=== PATIENT | male | born 1960 | race Caucasian/White ===

== ENCOUNTER 2021-05-01 23:37 | Inpatient (IN) | payer MEDICARE, SELFPAY ==
--- NOTE | ~2021-05-01 | US_ITS ---
EXAMINATION: US venous doppler [facility] DATE: 05/02/2021 15:21 INDICATION: Deep vein thrombosis. TECHNIQUE: Grayscale ultrasound images without and with compression and Doppler ultrasound images of the bilateral lower extremity veins were obtained. COMPARISON: chest CT 05/02/2021 FINDINGS: There is thrombus in right common femoral vein, profunda (deep) femoral vein, femoral vein, popliteal vein, peroneal veins, posterior tibial veins, and greater saphenous vein. The visualized portions of left common femoral vein, profunda femoral vein, femoral vein, popliteal v ein, peroneal veins, posterior tibial veins, and greater saphenous vein outflow are patent. IMPRESSION: 1. Extensive right-sided acute deep vein thrombosis. Reviewed, dictated and finalized at location A. NESS LAW PROFESSOR
--- NOTE | ~2021-05-01 | XR_ITS ---
EXAMINATION: XR chest 1V portable EXAM DATE: 05/02/2021 00:45 INDICATION: dyspnea, HX Lung Cancer, Copd . TECHNIQUE: Portable AP frontal chest x-ray was obtained. There is no prior study for comparison. FINDINGS: Extensive right-sided, moderate amount of left-sided airspace disease likely has acute comp onent of edema and/or pneumonia. Given portacatheter in appearance to right lung, may well be chronic component. There is a right-sided portacatheter. Cardiomediastinal silhouette is normal. Probable sm all right pleural effusion. No pneumothorax. There are bony degenerative changes. IMPRESSION: Extensive right-sided, moderate left-sided airspace disease, acute or acute on chronic. Reviewed, dictated and finalized at location A. ION SUPERVISOR
--- NOTE | ~2021-05-01 | CT_ITS ---
EXAMINATION: CTA chest PE abdomen pel EXAM DATE: 05/02/2021 02:12 INDICATION: Shortness of breath, stage IV lung cancer. TECHNIQUE: Spiral CTA of the chest (pulmonary arteries) was performed with 100 cc Omnipaque 350 intr avenous contrast injection. Images were acquired during the pulmonary arterial phase. Coronal maxi mum intensity projection 3D-reconstructions were created by the technologist on dedicated workstation . Axial, coronal and sagittal reformatted images were reviewed. Spiral CT of the abdomen and pelvis was then performed with the same intravenous contrast injection. Axial, coronal and sagittal reform atted images were reviewed. The dose-length product (DLP) for this examination was 1407.84 mGy-cm. The exposure was tailored according to patient size (auto mA exposure control), and iterative recons truction (ASIR) was used as additional dose reduction technique. There is no prior study for compari son. FINDINGS: CHEST: Positive for left lung interlobar pulmonary embolism extending into several segmental bronchi . No thoracic aortic dissection. There is a right-sided chest tube in position with multiloculated small to moderate right pleural effusion. No pneumothorax. Heart is within normal size limits. There is endocardial fatty deposition at the ventricular apex, an old ventricular infarction. There is debra re emphysema. Moderate amount of left-sided groundglass density airspace disease suspicious for acute pneumonia or edema. There is moderate amount of heterogeneous right perihilar airspace disease with soft tissue extension along the bronchus intermedius, causing narrowing of this structure. There are regions of occluded segmental bronchi. Appearance is consistent with infiltrative hilar malignancy. T here is a loculated pleural effusion medial to the right middle lobe measuring 4 x 9 cm in greatest a xial dimensions. Small left pleural effusion which may have loculations as well. Trace pericardial ef fusion. Small to moderate-sized gastroesophageal hiatal hernia. Mediastinal lymphadenopathy with an a ortopulmonary window lymph node measuring 1.6 x 1.3 cm. There is T5 pathological burst fracture with complete loss of this vertebral body height anteriorly a nd centrally, and about 50% loss of its posterior cortex, with about 4 mm retropulsion. Remaining por tion of vertebral body does appear sclerotic indicating probably from underlying metastatic disease. There are other scattered next osteoblastic osteolytic lesions identified, largest probably left 7th rib. Also sclerosis of the T4 and T6 vertebral bodies. ABDOMEN PELVIS: There is central low density within the right common femoral vein most likely deep ve nous thrombosis. The liver, spleen, adrenal glands and pancreas are unremarkable. Gallbladder is un remarkable. No biliary obstruction. Portal and splenic veins are patent. Kidneys enhance symmetric ally. There is no hydronephrosis. The prostate is unremarkable. The bladder is unremarkable. The re is no retroperitoneal or pelvic lymphadenopathy. There is mild to moderate scattered arterioscle rotic disease. Small bilateral inguinal fat-containing hernias. There is moderate sigmoid colonic diverticulosis. There is no adjacent inflammatory change to sugges t diverticulitis. There is a small duodenal diverticulum. There is moderate amount of colonic stool. No free intraperitoneal gas. Right iliac crest osteoblastic disease. IMPRESSION: 1. Positive for left lung pulmonary embolism, and also probably right common femoral DVT. Reportedl y embolism finding was called to emergency room Colt Douglas MD as per documentation with preliminary report. 2. Infiltrative right hilar airspace disease consistent with malignancy. Mediastinal lymphadenopathy . 3. Loculated bilateral pleural effusions, right-sided chest tube in position. 4. Scattered osteobla
[2021-05-01 23:41] VITALS: BP 115/83; PULSE 132; RESP 18; TEMP 36.1; O2SAT 95
[2021-05-01 23:48] VITALS: O2SAT 96
[2021-05-01 23:49] VITALS: PULSE 132
[2021-05-01 23:50] VITALS: PULSE 122; RESP 23; O2SAT 93
[2021-05-02] VITALS (68 sets, daily range): BP systolic 101–142; BP diastolic 50–114; PULSE 92–130; RESP 13–38; TEMP 36.2–36.7; O2SAT 84–100; BMI 25.1
--- NOTE | 2021-05-02 | ECHO_ITS ---
Patient Info Name: El Pino Age: 60 years : 1960 Gender: Male Ht: 67 in Wt: 175 lbs BSA: 1.95 m2 HR: 104 bpm BP: 107 / 69 mmHg Technical Quality: Poor Exam Date: 05/02/2021 2:04 PM Exam Location: [facility] Patient Status: Inpatient Admit Date: 05/02/2021 Staff Ordering Physician: Clara Dockery PA-C Tree Doctor: Ashley Salgado RDCS Attending Provider: Clara Dockery PA-C Referring Physician: Sarkis QUIÑONEZ; Exam Type: CA echo dop color flow w con Study Info Indications - EVALUATE EF - NEW ONSET PE Complete two-dimensional, color flow and Doppler transthoracic echocardiogram is performed with contrast to opacify the left ventricle and to improve the deliniation of the left ventricle endocardial borders. Contrast/Agitated Saline Contrast/Ag. Saline: Definity Amount: 4.00 ml Existing IV Access: Yes IV Access Condition: patent with no signs of infiltration Reason for Poor Study: poor echocardiographic windows Summary 1. Left ventricular chamber dimension is normal. 2. Definity contrast administered improved wall motion interpretation. 3. Left ventricular systolic function is normal, estimated at 55-60%. 4. The left ventricular diastolic function is grade I diastolic dysfunction. 5. E/e' 6 is not elevated. 6. No pulmonary hypertension, estimated pulmonary arterial systolic pressure is 39 mmHg. Left Ventricle E/e' 6 is not elevated. Definity contrast administered improved wall motion interpretation. Left ventricular chamber dimension is normal. Left ventricular systolic function is normal, estimated at 55-60%. The left ventricular diastolic function is grade I diastolic dysfunction. Right Ventricle Right ventricular chamber dimension is normal. Right ventricular systolic function is normal. Left Atria Left atrial chamber dimension is normal. Right Atria Right atrial chamber dimension is normal. Aortic Valve The aortic valve is not well visualized. Cannot determine number of aortic valve leaflets. There is no aortic valve stenosis based on valve area and gradients. There is no aortic valve regurgitation. Pulmonic Valve The pulmonic valve is not well visualized. Mitral Valve There is no mitral valve stenosis. There is no mitral valve regurgitation. Tricuspid Valve There is no tricuspid valve regurgitation. No pulmonary hypertension, estimated pulmonary arterial systolic pressure is 39 mmHg. Pericardium/Pleural There is no pericardial effusion. Inferior Vena Cava Normal inferior vena cava with >50% collapse upon inspiration consistent with normal right atrial pressure, 5 mmHg. Aorta The aortic root size at the sinus of Valsalva is not well visualized. Left Ventricular Outflow Tract Name Value Normal LVOT 2D LVOT Diameter 1.99 cm LVOT Doppler LVOT Peak Gradient 5 mmHg LVOT Mean Gradient 4 mmHg LVOT VTI 19.43 cm LVOT VTI/AV VTI Ratio 0.89 LVOT Stroke Volume
[2021-05-02 00:06] LABS: Alveolar/Arterial O2 Gradient 448.4 mmHg; Base Excess ABG 1.3 mEq/l (+/-2.0); Fractional Inspired Oxygen 80 %; HCO3 ABG 26.6 mEq/l (22.0-26.0); Oxygen Content ABG 17.7 %vol (16.0-22.0); PCO2 ABG 44.6 mmHg (35.0-45.0); PO2 ABG 75.2 mmHg (80.0-100.0); PO2 FiO2 Ratio Arterial Blood 0.94 %; Total Hemoglobin 13.8 g/dL (12.0-18.0); pH ABG 7.394 (7.350-7.450)
[2021-05-02 00:07] LABS: Device HIGH FLOW NASAL CANN; Modified Allen's Test Pass; Site Drawn LEFT RADIAL
--- NOTE | 2021-05-02 00:13 | ECG_ITS ---
Measurements Intervals [place] Rate: 130 P: 39 OH: 143 QRS: 68 QRSD: 90 T: 36 QT: 312 QTc: 459 Interpretive Statements SINUS TACHYCARDIA SUPRAVENTRICULAR BIGEMINY BASELINE ARTIFACT- I, II, III, AVR, AVL, AVF, V4-V6 ABNORMAL ECG Electronically Signed On 05-02-2021 7:58:31 DIRECTOR INFORMATICS by Juan Diego Davis D.O.
[2021-05-02 00:52] LABS: Basophils Absolute Auto 0.1 K/mm3 (0.0-0.1); Basophils Percent Auto 0.3 % (0.2-1.2); Eosinophils Absolute Auto 0.1 K/mm3 (0-0.3); Eosinophils Percent Auto 0.3 % (0-4.4); Hematocrit 38.8 % (42.0-52.0); Hemoglobin 12.7 g/dL (14.0-18.0); Immature Granulocyte Percent A 0.7 % (0-0.5); Lymphocytes Absolute Auto 0.63 K/mm3 (0.9-3.2); Lymphocytes Percent Auto 4.3 % (18.3-44.2); Mean Corpuscular HGB Conc 32.7 g/dl (32-36); Mean Corpuscular Hemoglobin 28.6 pg (26-34); Mean Corpuscular Volume 87.4 fl (80-100); Mean Platelet Volume 11.2 fl (7.4-10.4); Monocytes Absolute Auto 0.7 K/mm3 (0.1-0.6); Monocytes Percent Auto 4.7 % (2.6-8.5); Neutrophils Absolute Auto 13.1 K/mm3 (1.3-6.7); Neutrophils Percent Auto 89.7 % (45.5-73.1); Platelet Count Result 166 k/mm3 (150-375); Red Blood Count 4.44 M/mm3 (4.6-6.20); Red Cell Distribution Width 14.7 % (11.5-14.5); White Blood Count 14.6 K/mm3 (4.5-10.0)
[2021-05-02 01:01] LABS: Lactic Acid Reflex 1.5 mmol/L (0.7-2.1)
[2021-05-02 01:04] LABS: Lipase 37 U/L (23-300); Magnesium 1.9 mg/dL (1.6-2.3)
[2021-05-02 01:07] LABS: INR 1.2; Prothrombin Time 14.8 Seconds (11.1-14.7)
[2021-05-02 01:08] LABS: Partial Thromboplastin Time 30.2 SECONDS (22.3-36.8)
[2021-05-02 01:10] LABS: NT Pro B Type Natriuretic Pept 5220 pg/mL (5-100)
[2021-05-02] MEDS: SODIUM CHLORIDE 0.9% IV 1,000 ML 999 ML IV CONT (01:14)
[2021-05-02 01:18] LABS: SARS-CoV-2 RNA PCR Negative
[2021-05-02 01:40] LABS: Alanine Aminotransferase 32 U/L (4-50); Albumin Level 3.5 g/dL (3.5-5.1); Alkaline Phosphatase 198 U/L (38-126); Anion Gap 12 mmol/L (8-16); Aspartate Amino Transferase 59 U/L (17-59); Bilirubin,Total 0.6 mg/dL (0.2-1.3); Blood Urea Nitrogen 27 mg/dL (9-20); Calcium 8.7 mg/dL (8.4-10.2); Carbon Dioxide 25 mmol/L (22-30); Chloride 90 mmol/L (98-107); Estimated Glomerular Filt Rate 56; Glucose 166 mg/dL (65-110); Potassium 4.4 mmol/L (3.4-5.0); Sodium 127 mmol/L (137-145)
[2021-05-02 01:42] LABS: Troponin I 0.231 ng/mL (0.000-0.034)
--- NOTE | 2021-05-02 01:49 | PC.NURSE ---
To CT Scan.
--- NOTE | 2021-05-02 01:58 | PC.NURSE ---
Spoke with pt's Saray Pino. Pt gets meds at [facility] in [place]. Will attempt to get medication list updated. updated on plan of care. [phone].
--- NOTE | 2021-05-02 02:17 | ED.GENADULT ---
HPI - General Adult General Chief complaint: Shortness of Breath/Dyspnea Stated complaint: sob x 2 days, glf laying supine, 15l nrb Time Seen by Provider: 05/01/21 23:40 History of Present Illness HPI narrative: Patient is 60-year-old gentleman who presents the emergency department with chief complaint of shortness of breath. Patient reports he has history of lung cancer has a drain in his pleural space patient reports symptoms or not worsened by anything nor they improved by anything. Patient's family denies any recent fevers they report that he has been extremely tachypneic patient is not able to provide much history upon initial arrival Related Data Home Medications Medication Instructions Recorded Confirmed alprazolam 0.25 mg PO TID PRN 05/02/21 amitriptyline 150 mg PO DAILY 05/02/21 carbamazepine 100 mg PO BID 05/02/21 furosemide 20 mg PO BID 05/02/21 gabapentin 800 mg PO TID 05/02/21 hydromorphone 2 mg PO Q4H PRN 05/02/21 oxycodone [OxyContin] 60 mg PO BID 05/02/21 Allergies Allergy/AdvReac Type Severity Reaction Status Date / Time No Known Allergies Allergy Verified 05/01/21 23:50 Review of Systems Review of Systems: A 10 system review of systems was completed on the patient and is negative except for what is stated in the HPI. Nursing and ancillary documentation was reviewed. Exam Narrative: GENERAL: Ill-appearing, thin, and in moderate acute respiratory distress. HEAD: Normocephalic, atraumatic. EYES: PERRLA and EOMI. ENT: Nares clear, no rhinorrhea or epistaxis. Mucous membranes moist. NECK: Supple. CHEST: Coarse breath sounds bilaterally. Moderate respiratory distress. HEART: Regular rate and rhythm. No murmur heard. Normal peripheral pulses. ABDOMEN: Soft, nontender, nondistended, normal active bowel sounds. EXTREMITIES: Normal range of motion. No edema. SKIN: Warm, dry, no rash. NEURO: No focal deficits. Alert and oriented x3. Slow to respond PSYCH: Normal mood and affect. Course Vital Signs Vital signs: Vital Signs Temperature 36.1 C L 05/01/21 23:41 Pulse Rate 132 H 05/01/21 23:41 Respiratory Rate 18 05/01/21 23:41 Blood Pressure 115/83 05/01/21 23:41 Pulse Oximetry 95 05/01/21 23:41 Temperature 36.1 C L 05/01/21 23:41 Pulse Rate 107 H 05/02/21 06:15 Respiratory Rate 23 H 05/02/21 06:15 Blood Pressure 103/75 05/02/21 06:00 Pulse Oximetry 94 05/02/21 06:10 Medical Decision Making Vital Signs Vital Signs: Vital Signs Temperature 36.1 C L 05/01/21 23:41 Pulse Rate 132 H 05/01/21 23:41 Respiratory Rate 18 05/01/21 23:41 Blood Pressure 115/83 05/01/21 23:41 Pulse Oximetry 95 05/01/21 23:41 Temperature 36.1 C L 05/01/21 23:41 Pulse Rate 107 H 05/02/21 06:15 Respiratory Rate 23 H 05/02/21 06:15 Blood Pressure 103/75 05/02/21 06:00 Pulse Oximetry 94 05/02/21 06:10 Lab Data Result diagrams: 05/02/21 00:22 05/02/21 00:22 Labs: Lab Results 05/02/21 05/02/21 05/02/21 Range/Units 00:22 00:22 00:22 WBC 14.6 H (4.5-10.0) K/mm3 RBC 4.44 L (4.6-6.20) M/mm3 Hgb 12.7 L (14.0-18.0) g/dL Hct 38.8 L (42.0-52.0) % MCV 87.4 (80-100) fl MCH 28.6 (26-34) pg MCHC 32.7 (32-36) g/dl RDW 14.7 H (11.5-14.5) % Plt Count 166 (150-375) k/mm3 MPV 11.2 H (7.4-10.4) fl Immature Gran % (Auto) 0.7 H (0-0.5) % Neut % (Auto) 89.7 H (45.5-73.1) % Lymph % (Auto) 4.3 L (18.3-44.2) % O'Brien % (Auto) 4.7 (2.6-8.5) % Eos % (Auto) 0.3 (0-4.4) % Baso % (Auto) 0.3 (0.2-1.2) % Lymph # (Auto) 0.63 L (0.9-3.2) K/mm3 O'Brien # (Auto) 0.7 H (0.1-0.6) K/mm3 Eos # (Auto) 0.1 (0-0.3) K/mm3 Baso # (Auto) 0.1 (0.0-0.1) K/mm3 Abs Immat Gran (auto) 0.10 H (0.00-0.031) K/mm3 Absolute Neuts (auto) 13.1 H (1.3-6.7) K/mm3 Absolute Nucleated RBC 0.0 (0.0-0.012) K/mm3 Nucleated RBC % 0.0 (0.0-0.2) % PT 14.8 H
[2021-05-02] MEDS: MORPHINE SULFATE (*CRX) 2 MG/ML INJ IV PUSH (02:49)
[2021-05-02] MEDS: FUROSEMIDE INJ 40 MG/4 ML VIAL IV PUSH ×2 (02:49→18:35)
[2021-05-02] MEDS: HEPARIN SODIUM 5,000 UNITS/ML VIAL 6500 UNITS IV PUSH ×2 (03:43→10:22)
--- NOTE | 2021-05-02 04:15 | PC.NURSE ---
Awaiting heparin drip from pharmacy.
[2021-05-02] MEDS: HEPARIN SOD/D5W 100 UNITS/ML 25,000 UNITS/250 ML BAG 14 UNITS IV CONT (04:40)
[2021-05-02 05:18] LABS: Add Urine Microscopic? YES; Appearance Urine Clear (Clear); Bilirubin Urine Negative (Negative); Blood Urine 2+ (Negative); Color Urine Yellow (Yellow); Glucose Urine UA Negative (Negative); Ketones Urine Negative (Negative); Leukocyte Esterase Ur Negative LEU/UL (Negative); Nitrate Urine Negative (Negative); Protein Urine Negative (Negative); RBC Urine 0-2 /hpf (0-2); Specific Grav Ur 1.018 (1.001-1.035); Squamous Epithelial Cell Urine Rare /hpf (Few); Urobilinogen Urine Negative mg/dL (<2.0); WBC Urine 0-3 /hpf
--- NOTE | 2021-05-02 05:41 | PC.NURSE ---
Pt used urinal without difficulty. AM lab draw by phlebotomy.
[2021-05-02 06:30] LABS: Troponin I 0.205 ng/mL (0.000-0.034)
[2021-05-02] MEDS: IPRATROPIUM BR 0.02% INH SOLN 0.5 MG/2.5 ML VIAL INHALATION ×3 (09:06→21:40)
[2021-05-02] MEDS: ALBUTEROL SULFATE NEB 2.5 MG/0.5 ML INH 5 MG INHALATION ×3 (09:06→21:40)
[2021-05-02 10:03] LABS: INR 1.2; Prothrombin Time 14.9 Seconds (11.1-14.7)
[2021-05-02 10:04] LABS: Partial Thromboplastin Time 50.6 SECONDS (22.3-36.8)
[2021-05-02 10:49] LABS: Troponin I 0.172 ng/mL (0.000-0.034)
--- NOTE | 2021-05-02 14:00 | PM.IMHP ---
H&P: HPI History of Present Illness Date/Time: 05/02/21 14:00 Chief Complaint: Dyspnea Narrative: Date of service: 05/02/2021 Mikaela Pino is a 60-year-old male with a history of stage IV lung cancer, chronic respiratory failure on 4 L supplemental O2, and COPD who presented to the emergency department on 05/02/2021 with complaints of shortness of breath. He is a fair historian He stated he had trouble breathing yesterday. He simply woke up feeling short of breath. He cannot think of anything that brought this on. He states he ?can't remember any associated details. He then goes on to state that he does have lung cancer and has been feeling short of breath for some time. He does endorse wheezing. Denies chest pain. He also notes that for the past week he has noted swelling in his lower extremities. On presentation to the emergency department, he was tachypneic and tachycardic with additional vital signs stable, WBC 14.6, H&H decreased, sodium 127, BNP 5200, troponin 0.231, and CTA showed moderate burden pulmonary embolism with likely right common femoral DVT, infiltrative right hilar airspace disease consistent with malignancy, loculated bilateral pleural effusion with right-sided chest tube in place, and moderate amount of ground-glass opacity related to acute pneumonia vs pulmonary edema. At the time of my evaluation, he continues to endorse shortness of breath and wheezing. He denies significant cough or sputum production. No hemoptysis. Patient is being admitted to the hospitalist service. Supervising physician for this history and physical is Dr. Naren Palomo Review of Systems Review of Systems: All systems reviewed with pertinent positives and negatives as per HPI. Additionally, patient endorses feeling weak and fatigued. He endorses poor appetite but denies weight loss. He denies dizziness or lightheadedness. No nausea, vomiting, fever, chills, abdominal pain. His last bowel movement was 2-3 days ago. He endorses chronic back pain which she rates as 6/10. He denies sick contacts. He did complete his COVID-19 vaccination and received his booster. [facility] Past Medical History Medical History (Updated 05/02/21 @ 14:51 by Clara Dockery PA-C) Chronic inflammatory demyelinating neuropathy Chronic respiratory failure COPD (chronic obstructive pulmonary disease) Lung cancer Pleural effusion Port-A-Cath in place Surgical History Surgical History (Updated 05/02/21 @ 14:29 by Clara Dockery PA-C) History of chest tube placement PleurX catheter Family History Family History (Updated 05/02/21 @ 14:29 by Clara Dockery PA-C) Mother No problems noted. Father No problems noted. Social History Social History (Updated 05/02/21 @ 14:31 by Clara Dockery PA-C) Social History: Mr. Pino lives at home with his and his daughter. He is independent with his daily activities. His PCP is Dr. Donell Chacon. He designates his , Celena, as his surrogate decision maker. He would like to be a full code. Smoking packs per day: 1 Smoking cigarettes per day: 20.0 Years smoked: 40 Smoking pack-years: 40.00 Smoking status: Former smoker Additional smoking assessment comments: Quit 4 months ago Alcohol intake: never Substance use: current Substance use type: marijuana Other substance usage details: Daily marijuana use Living arrangements: with family Meds Home Medications and Allergies Home Medications Medication Instructions Recorded Confirmed Type alprazolam 0.25 mg PO TID PRN 05/02/21 05/02/21 History amitriptyline 150 mg PO DAILY 05/02/21 05/02/21 History carbamazepine 100 mg PO BID 05/02/21 05/02/21 History furosemide 20 mg PO BID 05/02/21 05/02/21 History gabapentin 800 mg PO TID 05/02/21 05/02/21 History hydromorphone 2 mg PO Q4H PRN 05/02/21 05/02/21 History oxycodone [OxyContin] 60 mg PO BID 05/02/21 05/02/21 History Allergies Allergy/AdvR
--- NOTE | 2021-05-02 15:18 | PCPTNOTE ---
received PT eval orders; reviewed EMR--pt admitted at midnight, is still in ED, has acute DVT, on heparin, with consults for cardiac and pulmonary dr. HOLD PT evaluation today.
[2021-05-02 16:12] LABS: INR 1.3; Prothrombin Time 15.5 Seconds (11.1-14.7)
[2021-05-02 16:14] LABS: Partial Thromboplastin Time 93.7 SECONDS (22.3-36.8)
--- NOTE | 2021-05-02 17:53 | PC.NURSE ---
Tried to call report at 1730 and at 1755 nurse Zohreh in IMU said the nurse taking report on him is in a patients room and unable to take report.
--- NOTE | 2021-05-02 18:05 | PC.NURSE ---
Tried to call report at 1806 and nurse still in another patients room and unable to take report
--- NOTE | 2021-05-02 20:02 | PM.CNPUL ---
Assessment and Plan Assessment and plan (1) Pulmonary embolism: Qualifiers: Acute cor pulmonale presence: unspecified Chronicity: acute Pulmonary embolism type: unspecified Qualified Code(s): I26.99 - Other pulmonary embolism without acute cor pulmonale Code(s): I26.99 - Other pulmonary embolism without acute cor pulmonale Status: Acute Assessment and Plan: He has acute pulmonary emboli to the left lung and a large amount of DVT in the entire right leg. He was not able to get up off the floor, so the PE was hemodynamically significant. He says that he had pulmonary emboli in the past and was on an anticoagulant prior to this admission. His risk factor for PE includes lung cancer and sedentary lifestyle. He is requiring 10 L/min, decreased from 15 L/min. His echo did not show cor pulmonale, although the study was challenging. He had elevated BNP 5220, and 3 elevated troponins that are trending downward. Na+ was low 127. He has severe emphysema, so the quality of an echo is often lower with hyperinflated lungs. He had increased values for PT and PTT on admission, says he is on an anticoagulant at home, not sure which one. He gets his medications from [facility] including meds for his nebulizer and inhalers. Neither of these medications are recorded on his home medication list. PLAN: 1. Continue to anticoagulate for large PE burden and RLE with large clot burden. He is at risk for dislodgement of more DVT to his lung. The left leg was negative, perhaps had thrombus that traveled to lungs. 2. Bedrest to decreased risk of LE DVT mobilizing to pulmonary arteries 3. Old records from [facility] where he was treated for PE in the last 1-2 years. 4. COPD treatment; needs inhaled therapy; he is not sure what he uses at home. All his medications come from [facility]. Will start Advair, continue albuterol and ipratropium in the nebulizer. 5. Adequate O2 to maintain saturation 90-94%. 6. Notify Dr King that he is here with PE. Patient has had this before, was treated at [facility], and says he was on blood thinners, however these are not on his med list. 7. He will need oral anticoagulant started, and his insurance coverage will be reviewed to see what is covered. 8. He is on empiric antibiotics, not a problem. He does not have fever, sputum, change in cough or other symptoms to suggest infection. He is frail, has bilateral infiltrates, so azithromycin and Rocephin are to cover the chance that he has a pneumonia. 05/02/21 00:22 05/02/2021 09:23 05/02/21 15:49 Protime 14.8 14.9 15.2 INR 1.2 1.2 1.3 PTT 30.2 sec 50.6 sec 93.7 sec (2) Acute and chronic respiratory failure: Code(s): J96.20 - Acute and chronic respiratory failure, unspecified whether with hypoxia or hypercapnia Status: Acute Assessment and Plan: Has been on O2 at home for the last month; was on it in the past and was able to be weaned off. Continue O2 to maintain saturation low 90s. His ABG 05/02 does not show CO2 retention, and I do not think he needs BiPAP with sleep. He does not have RAHCELLE, does not use PAP therapy at home. He has bullous changes in the apices. Would avoid overdistention of lungs. He can sleep with high flow nasla cannula. (3) COPD (chronic obstructive pulmonary disease): Code(s): J44.9 - Chronic obstructive pulmonary disease, unspecified Status: Acute Assessment and Plan: Severe emphysema on CT scan. He is not sure what his inhalers are, uses a nebulizer every other day at home, states that he is supposed to use it daily. He needs triple inhaler therapy and p.r.n. albuterol as needed for shortness of breath. He has diffuse wheezing, p.r.n. albuterol and ipratropium. Will start Advair for COPD control. He denies having sputum producti
[2021-05-02] MEDS: HEPARIN SOD/D5W 100 UNITS/ML 25,000 UNITS/250 ML BAG 17 UNITS IV CONT (20:09)
--- NOTE | 2021-05-02 20:22 | PC.NURSE ---
This patient, El Pino, was admitted to IMU Room 201-01. Patient/family oriented to hospital policies and general routines including ID bracelet, bed and alarms, visiting hours, pain management, procedures, bathroom and other care routines, personal items, smoking policy, room service/diet, and visiting hours. Information on how to activate the Rapid Response Team has been discussed. Patient/Family are encouraged to report perceived risks to care and to ask questions if they do not understand what they are told or what they should do.
[2021-05-02] MEDS: HYDROcodone/acetaminophen (*CRX) 7.5-325 MG TABLET 1 TAB PO (20:52)
[2021-05-02] MEDS: GABAPENTIN 400 MG CAPSULE 800 MG PO (20:54)
[2021-05-02] MEDS: DOCUSATE SODIUM 100 MG CAPSULE PO (20:56)
[2021-05-02] MEDS: CARBAMAZEPINE XR 100 MG TAB.SR.12H PO (20:56)
--- NOTE | 2021-05-02 21:20 | PCRCNOTE ---
PER Karon Degroot MD says to keep pt. on high flow NC for the night instead of BIPAP
[2021-05-02 22:04] LABS: Partial Thromboplastin Time 61.5 SECONDS (22.3-36.8)
[2021-05-02] MEDS: HEPARIN SODIUM 5,000 UNITS/ML VIAL 3000 UNITS IV PUSH (22:27)
[2021-05-02] MEDS: AMITRIPTYLINE HCL 25 MG TABLET 150 MG PO (23:03)
[2021-05-02] MEDS: ALPRAZolam (*CRX) 0.25 MG TABLET PO (23:03)
[2021-05-03] VITALS (30 sets, daily range): BP systolic 103–123; BP diastolic 50–89; PULSE 84–110; RESP 17–20; TEMP 36.4–37.1; O2SAT 78–100
[2021-05-03] MEDS: ALBUTEROL SULFATE NEB 2.5 MG/0.5 ML INH 5 MG INHALATION ×4 (02:04→20:53)
[2021-05-03] MEDS: IPRATROPIUM BR 0.02% INH SOLN 0.5 MG/2.5 ML VIAL INHALATION ×4 (02:05→20:54)
[2021-05-03 05:53] LABS: Basophils Percent Auto 0.5 % (0.2-1.2); Eosinophils Absolute Auto 0.2 K/mm3 (0-0.3); Eosinophils Percent Auto 3.6 % (0-4.4); Hematocrit 34.3 % (42.0-52.0); Hemoglobin 11.3 g/dL (14.0-18.0); Immature Granulocyte Absolute 0.03 K/mm3 (0.00-0.031); Immature Granulocyte Percent A 0.5 % (0-0.5); Lymphocytes Absolute Auto 0.77 K/mm3 (0.9-3.2); Lymphocytes Percent Auto 13.1 % (18.3-44.2); Mean Corpuscular HGB Conc 32.9 g/dl (32-36); Mean Corpuscular Hemoglobin 28.7 pg (26-34); Mean Corpuscular Volume 87.1 fl (80-100); Monocytes Absolute Auto 0.4 K/mm3 (0.1-0.6); Neutrophils Absolute Auto 4.4 K/mm3 (1.3-6.7); Neutrophils Percent Auto 75.3 % (45.5-73.1); Platelet Count Result 129 k/mm3 (150-375); Red Blood Count 3.94 M/mm3 (4.6-6.20); Red Cell Distribution Width 14.4 % (11.5-14.5); White Blood Count 5.9 K/mm3 (4.5-10.0)
[2021-05-03 05:55] LABS: Partial Thromboplastin Time 121.6 SECONDS (22.3-36.8)
[2021-05-03 06:08] LABS: Blood Urea Nitrogen 20 mg/dL (9-20); Carbon Dioxide > 40 mmol/L (22-30); Chloride 81 mmol/L (98-107); Estimated CRCL calculation 59 ml/min; Estimated Glomerular Filt Rate > 60; Glucose 110 mg/dL (65-110); Potassium 2.2 mmol/L (3.4-5.0); Sodium 129 mmol/L (137-145)
[2021-05-03] MEDS: FLUTICASONE/SALMETEROL 115-21 MCG INHALER 1 PUFF 2 PUFF INHALATION ×2 (08:13→20:53)
[2021-05-03] MEDS: POTASSIUM CHLORIDE INJ 40 MEQ in SODIUM CHLORIDE 0.9% IV 500 ML 130 MEQ IVPB ×2 (08:42→15:47)
--- NOTE | 2021-05-03 08:46 | PM.CNCAR ---
Assessment and Plan Assessment and plan (1) Pulmonary embolism: Qualifiers: Acute cor pulmonale presence: unspecified Chronicity: acute Pulmonary embolism type: unspecified Qualified Code(s): I26.99 - Other pulmonary embolism without acute cor pulmonale Code(s): I26.99 - Other pulmonary embolism without acute cor pulmonale Status: Acute Assessment and Plan: 60-year-old male with stage IV CA lung on recent chemotherapy, chronic respiratory failure on supplemental O2, and COPD. Patient admitted to the hospital with worsening shortness of breath; found to have left-sided PE; extensive right lower extremity DVT. Patient reports that he was on anticoagulation at home. Patient has been initiated on anticoagulation with unfractionated heparin. -continue anticoagulation. -patient has PE and DVT in the setting of underlying malignancy, and despite being on outpatient anticoagulation as per patient. He is at risk for recurrent thromboembolic events, and any additional embolic event could lead to hemodynamic compromise/further respiratory compromise given patient's underlying CA lung and chronic respiratory failure from COPD. I spoke with the patient and with the primary team, and discussed the option of IVC filter placement to help prevent further embolic event(s). Benefits, risks and alternatives of the procedure discussed with the patient. Patient and primary team in agreement with the plan. (2) DVT (deep venous thrombosis): Code(s): I82.409 - Acute embolism and thrombosis of unspecified deep veins of unspecified lower extremity Status: Acute Assessment and Plan: Anticoagulation; currently on unfractionated heparin, to be bridged to warfarin or 1 of the direct oral anticoagulants. (3) Acute and chronic respiratory failure: Code(s): J96.20 - Acute and chronic respiratory failure, unspecified whether with hypoxia or hypercapnia Status: Acute Assessment and Plan: Management as per primary team pulmonology. History of Present Illness History of Present Illness Consult date/time: 05/03/21 08:46 DATE OF CONSULT: 05/03/2021 REASON FOR CONSULT: Suspected CHF, elevated troponin REQUESTING PHYSICIAN:Clara Dockery PA-C CHIEF COMPLAINT: Shortness of breath HPI: 60-year-old male with stage IV CA lung on recent chemotherapy, chronic respiratory failure on supplemental O2, and COPD. Patient presented to [facility] ER on 05/02/2021 with worsening shortness of breath. At baseline, he has dyspnea on minimal exertion. His symptoms of dyspnea got worse that brought him to the hospital. He denies chest pain. He denied palpitation, dizziness or syncope. Patient states that he is on anticoagulation at home with what sounded like Lovenox injections. Patient was tachycardic, tachypneic with SpO2 94%; afebrile when blood pressure within normal limits at presentation. EKG on my personal evaluation showed sinus tachycardia, heart rate 130 beats per minute. Chest x-ray showed Extensive right-sided, moderate left-sided airspace disease, acute or acute on chronic. CTA chest abdomen and pelvis showed left lung pulmonary embolism, and also probably right common femoral DVT. Subsequent lower extremity venous Doppler confirmed Extensive right-sided acute deep vein thrombosis. Troponins are minimally elevated with peak troponin level of 0.2 which is trending downwards. NTproBNP is elevated at 5220. Echocardiogram is reported to show LVEF 55-60%, grade 1 diastolic dysfunction, normal RV size and systolic function, RVSP 39 mmHg. Patient has been initiated on anticoagulation with unfractionated heparin. Reason For Visit: Acute Pulmonary Embolus,Pneumonia,Lung Cancer Review of Systems Review of Systems: General: Positive for fatigue Psychological: Negative for anxiety, depression Ophthalmic: negative for loss of vision ENT: Negative for epistaxis, headaches Allergy and immunology: Negative for
[2021-05-03] MEDS: GABAPENTIN 400 MG CAPSULE 800 MG PO ×2 (08:47→13:15)
[2021-05-03] MEDS: FUROSEMIDE INJ 40 MG/4 ML VIAL IV PUSH (08:47)
[2021-05-03] MEDS: DOCUSATE SODIUM 100 MG CAPSULE PO ×2 (08:48→20:22)
[2021-05-03] MEDS: CARBAMAZEPINE XR 100 MG TAB.SR.12H PO ×2 (08:49→20:22)
[2021-05-03] MEDS: polyethylene glycoL 3350 17 GM POWD.PACK PO (08:50)
--- NOTE | 2021-05-03 11:15 | WPDHPUPDATE1 ---
History and Physical Update Update Date/Time: 05/03/21 11:15 History and Physical has been reviewed, including an updated exam of the patient. There are NO changes in the patient's condition. Risks, benefits, and alternatives have been discussed and questions answered. Patient agrees to proceed with procedure.
--- NOTE | 2021-05-03 11:16 | PM.OP ---
Procedure Note - Brief Procedure Note - Brief Date of procedure: 05/03/21 Pre-op diagnosis: Acute Pulmonary Embolus,Pneumonia,Lung Cancer Description of procedure: DATE OF PROCEDURE: 05/03/2021 INDICATION FOR PROCEDURE: Pulmonary embolism, right lower extremity DVT in the setting of stage IV CA lung, oxygen dependent respiratory failure. BRIEF CLINICAL HISTORY:60-year-old male with stage IV CA lung on recent chemotherapy, chronic respiratory failure on supplemental O2, and COPD. Patient admitted to the hospital with worsening shortness of breath; found to have left-sided PE; extensive right lower extremity DVT. Patient reported that he was on anticoagulation at home. Patient has been initiated on anticoagulation with unfractionated heparin in Patient has PE and DVT in the setting of underlying malignancy, and despite being on outpatient anticoagulation as per patient. He is at risk for recurrent thromboembolic events, and any additional embolic event could lead to hemodynamic compromise/further respiratory compromise given patient's underlying CA lung and chronic respiratory failure from COPD. I spoke with the patient and with the primary team, and discussed the option of IVC filter placement to help prevent further embolic event(s). Benefits, risks and alternatives of the procedure discussed with the patient. Patient and primary team in agreement with the plan. PROCEDURES PERFORMED: 1. Inferior vena cavogram 2. Deployment of Bard Otoe inferior vena cava filter under fluoroscopic guidance through right common femoral vein SEDATION: No sedation was provided due to patient's compromised respiratory status. Procedure was done under local anesthesia. ACCESS SITE: Right common femoral vein PROCEDURE: Patient was brought to the director of cardiac cath lab and prepped and draped in the usual sterile manner. After local anesthesia with lidocaine, right common femoral venous access was taken with micropuncture needle followed by the IVC filter delivery sheath over 035 wire. Inferior vena cava valve was performed. Next, the Bard Otoe IVC filter was deployed under fluoroscopic guidance distal to the renal veins. Post deployment angiogram showed good apposition of the IVC filter device distal to renal veins. The sheath was taken out and manual pressure was used for local hemostasis. Patient tolerated procedure well without any immediate procedure related complications. RECOMMENDATIONS: Continue anticoagulation with heparin, which will need to be bridged with warfarin or 1 of the direct oral anticoagulants. Surgeon: Sorin Leyva MD
--- NOTE | 2021-05-03 11:52 | SUR.PHASEII ---
1152-REPORT CALLED TO IMU RN.
[2021-05-03 12:55] LABS: Partial Thromboplastin Time 57.3 SECONDS (22.3-36.8)
[2021-05-03] MEDS: HEPARIN SODIUM 5,000 UNITS/ML VIAL 3000 UNITS IV PUSH (13:16)
[2021-05-03 14:27] LABS: Potassium 2.9 mmol/L (3.4-5.0)
[2021-05-03] MEDS: POTASSIUM CHLORIDE 20 MEQ TABLET 40 MEQ PO (15:49)
--- NOTE | 2021-05-03 15:49 | P.PNIM_ITS ---
Progress Note: A&P Assessment and Plan (1) Acute and chronic respiratory failure: Code(s): J96.20 - Acute and chronic respiratory failure, unspecified whether with hypoxia or hypercapnia Status: Acute Assessment and Plan: Chronic respiratory failure likely secondary to COPD on 4 L supplemental O2 at baseline. Acutely worsened, currently requiring 8 L per nasal cannula with increased work of breathing. Likely multifactorial in etiology: * New onset PE. Please see below * Stage IV lung cancer * Likely pneumonia with evidence of ground-glass opacities. Continue IV ceftriaxone and azithromycin. * COVID PCR negative. Will check influenza, legionella and pneumococcal urinary antigens * Possibly related to pulmonary edema with new onset lower extremity swelling and elevated BNP. Administered 1 time dose of IV Lasix in the ED. Was started 40 mg IV Lasix BID, however potassium dropped to 2.2. Edema is improved so this was switched to 20 mg PO daily which is noted to be his home dose. Monitor intake and output. Heart healthy diet. Echo with grade 1 diastolic dysfunction. * Supportive care. Continue supplemental O2 as needed with goal saturation 90% or above * Continue albuterol and ipratropium nebs q.6 * Appreciate pulmonology consultation (2) Pulmonary embolism: Qualifiers: Acute cor pulmonale presence: unspecified Chronicity: acute Pulmonary embolism type: unspecified Qualified Code(s): I26.99 - Other pulmonary embolism without acute cor pulmonale Code(s): I26.99 - Other pulmonary embolism without acute cor pulmonale Status: Acute Assessment and Plan: Evident on CTA with at least moderate clot burden * Left lung interlobar pulmonary embolism extending into several segmental bronchi * Echocardiogram shows grade 1 diastolic dysfunction. * Troponins mildly elevated. BNP is elevated * IVC filter placed today by Dr. Leyva * Continue heparin, will need to be bridged with warfarin or one of the direct oral anticoagulants (3) Lung cancer: Qualifiers: Laterality: unspecified laterality Lung location: unspecified part of lung Qualified Code(s): C34.90 - Malignant neoplasm of unspecified part of unspecified bronchus or lung Code(s): C34.90 - Malignant neoplasm of unspecified part of unspecified bronchus or lung Status: Acute Assessment and Plan: Stage IV lung cancer managed by oncologist Dr. King * Completed radiation 6 months ago * I spoke with RN at Dr. King is office to obtain further information * Had been managed on oral chemotherapy Lumakras which was discontinued 1 week ago after recent PET scan showed progression * family service aide reports at this time there are no additional options for treatment. 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 They will continue to follow-up monthly for further monitoring and pain management * Reports patient is established with palliative care (4) Pleural effusion: Code(s): J90 - Pleural effusion, not elsewhere classified Status: Acute Assessment and Plan: Patient had PleurX catheter placed a [facility] * He reports he is no longer draining his catheter * CTA showed loculated bilateral pleural effusions * Appreciate pulmonology consultation (5) COPD (chronic obstructive pulmonary disease): Code(s): J44.9 - Chronic obstructive pulmonary disease, unspecified Status: Acute Assessment and Plan: With diffuse wheezing on exam * Appreciate pulmonology consultation * Continue nebulizers * At thi
--- NOTE | 2021-05-03 15:49 | PM.IMPN ---
Progress Note: A&P Assessment and Plan (1) Acute and chronic respiratory failure: Code(s): J96.20 - Acute and chronic respiratory failure, unspecified whether with hypoxia or hypercapnia Status: Acute Assessment and Plan: Chronic respiratory failure likely secondary to COPD on 4 L supplemental O2 at baseline. Acutely worsened, currently requiring 8 L per nasal cannula with increased work of breathing. Likely multifactorial in etiology: New onset PE. Please see below Stage IV lung cancer Likely pneumonia with evidence of ground-glass opacities. Continue IV ceftriaxone and azithromycin. COVID PCR negative. Will check influenza, legionella and pneumococcal urinary antigens Possibly related to pulmonary edema with new onset lower extremity swelling and elevated BNP. Administered 1 time dose of IV Lasix in the ED. Was started 40 mg IV Lasix BID, however potassium dropped to 2.2. Edema is improved so this was switched to 20 mg PO daily which is noted to be his home dose. Monitor intake and output. Heart healthy diet. Echo with grade 1 diastolic dysfunction. Supportive care. Continue supplemental O2 as needed with goal saturation 90% or above Continue albuterol and ipratropium nebs q.6 Appreciate pulmonology consultation (2) Pulmonary embolism: Qualifiers: Acute cor pulmonale presence: unspecified Chronicity: acute Pulmonary embolism type: unspecified Qualified Code(s): I26.99 - Other pulmonary embolism without acute cor pulmonale Code(s): I26.99 - Other pulmonary embolism without acute cor pulmonale Status: Acute Assessment and Plan: Evident on CTA with at least moderate clot burden Left lung interlobar pulmonary embolism extending into several segmental bronchi Echocardiogram shows grade 1 diastolic dysfunction. Troponins mildly elevated. BNP is elevated IVC filter placed today by Dr. Leyva Continue heparin, will need to be bridged with warfarin or one of the direct oral anticoagulants (3) Lung cancer: Qualifiers: Laterality: unspecified laterality Lung location: unspecified part of lung Qualified Code(s): C34.90 - Malignant neoplasm of unspecified part of unspecified bronchus or lung Code(s): C34.90 - Malignant neoplasm of unspecified part of unspecified bronchus or lung Status: Acute Assessment and Plan: Stage IV lung cancer managed by oncologist Dr. King Completed radiation 6 months ago I spoke with RN at Dr. King is office to obtain further information Had been managed on oral chemotherapy Lumakras which was discontinued 1 week ago after recent PET scan showed progression battery tester and repairer reports at this time there are no additional options for treatment. 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 They will continue to follow-up monthly for further monitoring and pain management Reports patient is established with palliative care (4) Pleural effusion: Code(s): J90 - Pleural effusion, not elsewhere classified Status: Acute Assessment and Plan: Patient had PleurX catheter placed a [facility] He reports he is no longer draining his catheter CTA showed loculated bilateral pleural effusions Appreciate pulmonology consultation (5) COPD (chronic obstructive pulmonary disease): Code(s): J44.9 - Chronic obstructive pulmonary disease, unspecified Status: Acute Assessment and Plan: With diffuse wheezing on exam Appreciate pulmonology consultation Continue nebulizers At this time will hold on initiating IV steroids while treating acute infection with antibiotics. Will await further recommendations from pulmonology regarding this (6) DVT (deep venous thrombosis): Code(s): I82.409 - Acute embolism and thrombosis of unspecified deep veins of unspecified lower extremity Status: Acute Assessment and Plan: CTA suggestive of right common fem
[2021-05-03] MEDS: HYDROcodone/acetaminophen (*CRX) 7.5-325 MG TABLET 1 TAB PO (17:42)
[2021-05-03] MEDS: AMITRIPTYLINE HCL 25 MG TABLET 150 MG PO (20:21)
[2021-05-03 20:44] LABS: Partial Thromboplastin Time 126.7 SECONDS (22.3-36.8)
[2021-05-04] VITALS (20 sets, daily range): BP systolic 92–110; BP diastolic 50–69; PULSE 85–114; RESP 16–90; TEMP 36.1–36.6; O2SAT 90–98
[2021-05-04] MEDS: HEPARIN SOD/D5W 100 UNITS/ML 25,000 UNITS/250 ML BAG 17 UNITS IV CONT (01:08)
--- NOTE | 2021-05-04 02:14 | PCRCNOTE ---
pt stated that he did not want to be woken up for treatment at 0200 on 05/04
[2021-05-04 03:08] LABS: Basophils Percent Auto 0.5 % (0.2-1.2); Eosinophils Absolute Auto 0.2 K/mm3 (0-0.3); Eosinophils Percent Auto 3.8 % (0-4.4); Hematocrit 35.8 % (42.0-52.0); Hemoglobin 11.8 g/dL (14.0-18.0); Immature Granulocyte Absolute 0.03 K/mm3 (0.00-0.031); Immature Granulocyte Percent A 0.7 % (0-0.5); Lymphocytes Absolute Auto 0.63 K/mm3 (0.9-3.2); Lymphocytes Percent Auto 14.9 % (18.3-44.2); Mean Corpuscular Hemoglobin 29.4 pg (26-34); Mean Corpuscular Volume 89.1 fl (80-100); Mean Platelet Volume 10.8 fl (7.4-10.4); Monocytes Absolute Auto 0.3 K/mm3 (0.1-0.6); Monocytes Percent Auto 6.6 % (2.6-8.5); Neutrophils Absolute Auto 3.1 K/mm3 (1.3-6.7); Neutrophils Percent Auto 73.5 % (45.5-73.1); Platelet Count Result 149 k/mm3 (150-375); Red Blood Count 4.02 M/mm3 (4.6-6.20); Red Cell Distribution Width 14.7 % (11.5-14.5); White Blood Count 4.2 K/mm3 (4.5-10.0)
[2021-05-04 03:28] LABS: INR 1.1; Prothrombin Time 14.3 Seconds (11.1-14.7)
[2021-05-04] MEDS: HYDROcodone/acetaminophen (*CRX) 7.5-325 MG TABLET 1 TAB PO (03:28)
[2021-05-04 03:30] LABS: Partial Thromboplastin Time 104.6 SECONDS (22.3-36.8)
[2021-05-04 03:52] LABS: Alanine Aminotransferase 55 U/L (4-50); Albumin Level 3.1 g/dL (3.5-5.1); Alkaline Phosphatase 170 U/L (38-126); Aspartate Amino Transferase 102 U/L (17-59); Bilirubin,Total 0.3 mg/dL (0.2-1.3); Blood Urea Nitrogen 14 mg/dL (9-20); Calcium 8.3 mg/dL (8.4-10.2); Carbon Dioxide > 40 mmol/L (22-30); Chloride 86 mmol/L (98-107); Estimated CRCL calculation 71 ml/min; Estimated Glomerular Filt Rate > 60; Glucose 102 mg/dL (65-110); Potassium 3.4 mmol/L (3.4-5.0); Sodium 131 mmol/L (137-145)
[2021-05-04] MEDS: FLUTICASONE/SALMETEROL 115-21 MCG INHALER 1 PUFF 2 PUFF INHALATION ×2 (08:10→19:46)
[2021-05-04] MEDS: IPRATROPIUM BR 0.02% INH SOLN 0.5 MG/2.5 ML VIAL INHALATION ×3 (08:10→19:46)
[2021-05-04] MEDS: ALBUTEROL SULFATE NEB 2.5 MG/0.5 ML INH 5 MG INHALATION ×3 (08:10→19:45)
[2021-05-04] MEDS: CARBAMAZEPINE XR 100 MG TAB.SR.12H PO ×2 (09:43→22:39)
[2021-05-04] MEDS: GABAPENTIN 400 MG CAPSULE 800 MG PO ×3 (09:43→17:32)
[2021-05-04] MEDS: FUROSEMIDE 20 MG TABLET PO (09:44)
--- NOTE | 2021-05-04 10:52 | PM.PNCARD ---
Progress Note: A&P Assessment and Plan (1) Pulmonary embolism: Qualifiers: Acute cor pulmonale presence: unspecified Chronicity: acute Pulmonary embolism type: unspecified Qualified Code(s): I26.99 - Other pulmonary embolism without acute cor pulmonale Code(s): I26.99 - Other pulmonary embolism without acute cor pulmonale Status: Acute Assessment and Plan: 60-year-old male with stage IV CA lung on recent chemotherapy, chronic respiratory failure on supplemental O2, and COPD. Patient admitted to the hospital with worsening shortness of breath; found to have left-sided PE; extensive right lower extremity DVT. Patient reports that he was on anticoagulation at home. Patient has been initiated on anticoagulation with unfractionated heparin. -continue anticoagulation. -explained hypercoagulable state given underlying malignancy and thromboembolic risk. -doing well status post IVC filter placement 05/03/[address] Leyva. Explained rationale, limitations, potential benefits given malignancy and risk for recurrent thromboembolic phenomena which may be life-threatening and or fatal. All questions answered to his satisfaction. Explained he management is with ongoing systemic anticoagulation without interruption. Patient verbalized understanding. He appreciated my explanations and time spent going through things. Will set up follow-up in the office in 4-[address] Leyva. Patient should be transitioned from heparin infusion to oral systemic anticoagulation PE dosing preferably with apixaban or rivaroxaban. Warfarin also acceptable but he must be bridged with systemic anticoagulation until INR therapeutic at 2-3 if warfarin must be pursued. Will defer to primary service for management in this regard. No other acute cardiovascular issues at this time. Will sign off for now. Follow up as an outpatient in 4-6 weeks. Please do not hesitate to contact us with any additional questions or concerns. (2) DVT (deep venous thrombosis): Code(s): I82.409 - Acute embolism and thrombosis of unspecified deep veins of unspecified lower extremity Status: Acute Assessment and Plan: As above. Anticoagulation; currently on unfractionated heparin, to be bridged to warfarin or 1 of the direct oral anticoagulants. (3) Acute and chronic respiratory failure: Code(s): J96.20 - Acute and chronic respiratory failure, unspecified whether with hypoxia or hypercapnia Status: Acute Assessment and Plan: Management as per primary team pulmonology. Subjective Date/time seen: Date of service: 05/04/21 10:52 Follow-up status post IVC filter for DVT and PE with elevated troponin. Common complicated IVC filter placement yesterday with Dr. Leyva. Denies chest pain or any shortness of breath. States he feels fairly well. No hemoptysis. Denies leg pain at venous access site. Telemetry stable arrhythmias overnight. Remains on heparin drip. Review of Systems Review of Systems: All systems reviewed & are unremarkable except as noted in HPI and below Constitutional: Constitutional: Reports as per HPI, Reports no additional constitutional complaints and Reports fatigue Eyes: Eyes: Reports as per HPI and Reports no additional eye complaints ENT: Reports system reviewed and no additional complaints, except as documented and Reports as per HPI Cardiovascular: Cardiovascular: Reports as per HPI, Reports no additional cardiovascular complaints and Denies chest pain Respiratory: Respiratory: Reports as per HPI, Reports no additional respiratory complaints, Denies cough, Denies hemoptysis and Reports dyspnea on exertion Gastrointestinal: Gastrointestinal: Reports as per HPI, Reports no additional gastrointestinal complaints, Denies abdominal pain, Denies melena, Denies hematochezia, Denies nausea and Denies vomiting Genitourinary: Genitourinary: Reports no additional male genitourinary complaints, Reports as per HPI a
[2021-05-04 12:17] LABS: Partial Thromboplastin Time 66.4 SECONDS (22.3-36.8)
[2021-05-04] MEDS: HEPARIN SODIUM 5,000 UNITS/ML VIAL 3000 UNITS IV PUSH (13:23)
--- NOTE | 2021-05-04 15:48 | PM.IMPN ---
Progress Note: A&P Assessment and Plan (1) Acute and chronic respiratory failure: Code(s): J96.20 - Acute and chronic respiratory failure, unspecified whether with hypoxia or hypercapnia Status: Acute Assessment and Plan: Chronic respiratory failure likely secondary to COPD on 4 L supplemental O2 at baseline. Acutely worsened, currently requiring 8 L per nasal cannula with increased work of breathing. Likely multifactorial in etiology: New onset PE. Please see below Stage IV lung cancer Likely pneumonia with evidence of ground-glass opacities. Continue IV ceftriaxone and azithromycin. COVID PCR negative. Will check legionella and pneumococcal urinary antigens Possibly related to pulmonary edema with new onset lower extremity swelling and elevated BNP. Administered 1 time dose of IV Lasix in the ED. Was started 40 mg IV Lasix BID, however potassium dropped to 2.2. Edema is improved so this was switched to 20 mg PO daily which is noted to be his home dose. Monitor intake and output. Heart healthy diet. Echo with grade 1 diastolic dysfunction. Supportive care. Continue supplemental O2 as needed with goal saturation 90% or above Continue albuterol and ipratropium nebs q.6 Appreciate pulmonology consultation (2) Pulmonary embolism: Qualifiers: Acute cor pulmonale presence: unspecified Chronicity: acute Pulmonary embolism type: unspecified Qualified Code(s): I26.99 - Other pulmonary embolism without acute cor pulmonale Code(s): I26.99 - Other pulmonary embolism without acute cor pulmonale Status: Acute Assessment and Plan: Evident on CTA with at least moderate clot burden Left lung interlobar pulmonary embolism extending into several segmental bronchi Echocardiogram shows grade 1 diastolic dysfunction. Troponins mildly elevated. BNP is elevated IVC filter placed by Dr. Leyva Continue heparin, will need to be bridged with warfarin or one of the direct oral anticoagulants Hoped to transition to xaralto today, however he is on tegretol which has a strong interaction with both xaralto and eliquis. Pt is a poor historian and states he does not know why he takes it. He denies a hx of seizures. It looks like it was prescribed by his oncologist Dr. King which leads me to believe he is taking it for neuropathic pain. Left voicemail for Dr. King to discuss stopping tegretol in favor of starting xaralto. Due to patient compliance I am hesitant to start him on lovenox or warfarin. (3) Lung cancer: Qualifiers: Laterality: unspecified laterality Lung location: unspecified part of lung Qualified Code(s): C34.90 - Malignant neoplasm of unspecified part of unspecified bronchus or lung Code(s): C34.90 - Malignant neoplasm of unspecified part of unspecified bronchus or lung Status: Acute Assessment and Plan: Stage IV lung cancer managed by oncologist Dr. King Completed radiation 6 months ago I spoke with RN at Dr. King is office to obtain further information Had been managed on oral chemotherapy Lumakras which was discontinued 1 week ago after recent PET scan showed progression tooling manager reports at this time there are no additional options for treatment. 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 They will continue to follow-up monthly for further monitoring and pain management Reports patient is established with palliative care (4) Pleural effusion: Code(s): J90 - Pleural effusion, not elsewhere classified Status: Acute Assessment and Plan: Patient had PleurX catheter placed a [facility] He reports he is no longer draining his catheter CTA showed loculated bilateral pleural effusions Appreciate pulmonology consultation (5) COPD (chronic obstructive pulmonary disease): Code(s): J44.9 - Chronic obstructive pulmonary disease, unspecified Status: Acute Assessment and
[2021-05-04] MEDS: HYDROmorphone HCL (*CRX) 2 MG TABLET PO (17:34)
[2021-05-04] MEDS: HEPARIN SOD/D5W 100 UNITS/ML 25,000 UNITS/250 ML BAG 19 UNITS IV CONT (17:35)
--- NOTE | 2021-05-04 19:48 | PM.PNPUL ---
Progress Note: A&P Assessment and Plan (1) Pulmonary embolism: Qualifiers: Acute cor pulmonale presence: unspecified Chronicity: acute Pulmonary embolism type: unspecified Qualified Code(s): I26.99 - Other pulmonary embolism without acute cor pulmonale Code(s): I26.99 - Other pulmonary embolism without acute cor pulmonale Status: Acute Assessment and Plan: He has acute pulmonary emboli to the left lung and a large amount of DVT in the entire right leg. He was not able to get up off the floor, so the PE was hemodynamically significant. He says that he had pulmonary emboli in the past and was on an anticoagulant prior to this admission. His risk factor for PE includes lung cancer and sedentary lifestyle. He is requiring less O2, echo did not show cor pulmonale, although the study was challenging. He had elevated BNP 5220, and 3 elevated troponins that are trending downward. Na+ remains low 131, improved from 127. Will continue to anticoagulate for large PE burden and RLE with large clot burden. He is at risk for dislodgement of more DVT to his lung. The left leg was negative, perhaps had thrombus that traveled to lungs, bedrest to decreased risk of LE DVT mobilizing to pulmonary arteries, COPD management, wean O2. (2) Acute and chronic respiratory failure: Code(s): J96.20 - Acute and chronic respiratory failure, unspecified whether with hypoxia or hypercapnia Status: Acute Assessment and Plan: Has been on O2 at home for the last month; was on it in the past and was able to be weaned off. Continue O2 to maintain saturation low 90s. His ABG 05/02 does not show CO2 retention, and I do not think he needs BiPAP with sleep. He does not have RACHELLE, does not use PAP therapy at home. He has bullous changes in the apices. Would avoid overdistention of lungs. He can sleep with high flow nasla cannula. (3) COPD (chronic obstructive pulmonary disease): Code(s): J44.9 - Chronic obstructive pulmonary disease, unspecified Status: Acute Assessment and Plan: Severe emphysema on CT scan. He is not sure what his inhalers are, uses a nebulizer every other day at home, states that he is supposed to use it daily. He needs triple inhaler therapy and p.r.n. albuterol as needed for shortness of breath. He has diffuse wheezing, p.r.n. albuterol and ipratropium. Continue Advair for COPD control. He denies having sputum production. (4) Lung cancer: Qualifiers: Laterality: unspecified laterality Lung location: unspecified part of lung Qualified Code(s): C34.90 - Malignant neoplasm of unspecified part of unspecified bronchus or lung Code(s): C34.90 - Malignant neoplasm of unspecified part of unspecified bronchus or lung Status: Acute Assessment and Plan: Metastatic lung cancer, has mets to bone in thoracic spine; malignant pleural effusions. He has a Pleur-X catheter on the right side, has not had output for many months. He was told by Dr King a week ago to stop his oral chemotherapy, has appointment next week for addition plans to treat his lung cancer. (5) DVT (deep venous thrombosis): Code(s): I82.409 - Acute embolism and thrombosis of unspecified deep veins of unspecified lower extremity Status: Acute Assessment and Plan: This is recurrent thomboembolic event, and he says he was on anticaogulation at home. Right leg has extensive DVT; thrombus in right common femoral vein, profunda (deep) femoral vein, femoral vein, popliteal vein, peroneal veins, posterior tibial veins, and greater saphenous vein. The left is patent, no clots. IMPRESSION: 1. Extensive right-sided acute deep vein thrombosi
[2021-05-04 20:01] LABS: Partial Thromboplastin Time 123.8 SECONDS (22.3-36.8)
[2021-05-04] MEDS: AMITRIPTYLINE HCL 25 MG TABLET 150 MG PO (22:39)
[2021-05-05] VITALS (19 sets, daily range): BP systolic 97–167; BP diastolic 54–108; PULSE 76–589; RESP 16–20; TEMP 36.3–36.9; O2SAT 90–100
[2021-05-05] MEDS: IPRATROPIUM BR 0.02% INH SOLN 0.5 MG/2.5 ML VIAL INHALATION ×4 (01:59→21:11)
[2021-05-05] MEDS: ALBUTEROL SULFATE NEB 2.5 MG/0.5 ML INH 5 MG INHALATION ×4 (01:59→21:09)
[2021-05-05 02:44] LABS: Basophils Percent Auto 0.4 % (0.2-1.2); Eosinophils Absolute Auto 0.1 K/mm3 (0-0.3); Eosinophils Percent Auto 2.1 % (0-4.4); Hematocrit 35.4 % (42.0-52.0); Hemoglobin 11.4 g/dL (14.0-18.0); Immature Granulocyte Absolute 0.04 K/mm3 (0.00-0.031); Immature Granulocyte Percent A 0.8 % (0-0.5); Lymphocytes Absolute Auto 0.84 K/mm3 (0.9-3.2); Lymphocytes Percent Auto 16.4 % (18.3-44.2); Mean Corpuscular HGB Conc 32.2 g/dl (32-36); Mean Corpuscular Hemoglobin 28.6 pg (26-34); Mean Corpuscular Volume 88.7 fl (80-100); Mean Platelet Volume 10.5 fl (7.4-10.4); Monocytes Absolute Auto 0.4 K/mm3 (0.1-0.6); Monocytes Percent Auto 6.8 % (2.6-8.5); Neutrophils Absolute Auto 3.8 K/mm3 (1.3-6.7); Neutrophils Percent Auto 73.5 % (45.5-73.1); Platelet Count Result 151 k/mm3 (150-375); Red Blood Count 3.99 M/mm3 (4.6-6.20); Red Cell Distribution Width 14.6 % (11.5-14.5); White Blood Count 5.1 K/mm3 (4.5-10.0)
[2021-05-05 02:55] LABS: Partial Thromboplastin Time 81.7 SECONDS (22.3-36.8)
[2021-05-05 02:57] LABS: Anion Gap 6 mmol/L (8-16); Blood Urea Nitrogen 10 mg/dL (9-20); Calcium 8.4 mg/dL (8.4-10.2); Carbon Dioxide 39 mmol/L (22-30); Chloride 85 mmol/L (98-107); Estimated CRCL calculation 79 ml/min; Estimated Glomerular Filt Rate > 60; Glucose 115 mg/dL (65-110); Potassium 2.8 mmol/L (3.4-5.0); Sodium 130 mmol/L (137-145)
[2021-05-05 03:29] LABS: Magnesium 1.9 mg/dL (1.6-2.3)
[2021-05-05] MEDS: POTASSIUM CHLORIDE INJ 40 MEQ in SODIUM CHLORIDE 0.9% IV 500 ML 130 MEQ IVPB (04:55)
[2021-05-05] MEDS: POTASSIUM CHLORIDE 20 MEQ PACKET (FOR LIQUID) 40 MEQ PO (04:55)
[2021-05-05] MEDS: HEPARIN SOD/D5W 100 UNITS/ML 25,000 UNITS/250 ML BAG 17 UNITS IV CONT (09:07)
[2021-05-05] MEDS: HYDROcodone/acetaminophen (*CRX) 5-325 MG TABLET 1 TAB PO (09:08)
[2021-05-05] MEDS: DOCUSATE SODIUM 100 MG CAPSULE PO ×2 (09:09→20:36)
[2021-05-05] MEDS: CARBAMAZEPINE XR 100 MG TAB.SR.12H PO (09:09)
[2021-05-05] MEDS: FUROSEMIDE 20 MG TABLET PO (09:09)
[2021-05-05] MEDS: GABAPENTIN 400 MG CAPSULE 800 MG PO ×3 (09:09→17:44)
--- NOTE | 2021-05-05 09:29 | PCOTNOTE ---
Attempted to see patient this date at 09:23am, patient currently eating breakfast.
[2021-05-05] MEDS: FLUTICASONE/SALMETEROL 115-21 MCG INHALER 1 PUFF 2 PUFF INHALATION ×2 (09:51→21:11)
[2021-05-05 10:00] LABS: Anion Gap 4 mmol/L (8-16); Blood Urea Nitrogen 9 mg/dL (9-20); Calcium 8.6 mg/dL (8.4-10.2); Carbon Dioxide 39 mmol/L (22-30); Chloride 90 mmol/L (98-107); Estimated CRCL calculation 79 ml/min; Estimated Glomerular Filt Rate > 60; Glucose 106 mg/dL (65-110); Potassium 3.8 mmol/L (3.4-5.0); Sodium 133 mmol/L (137-145)
[2021-05-05 15:06] LABS: Pneumococcal Antigen Urine Not Detected (Not Detected)
--- NOTE | 2021-05-05 16:10 | P.PNIM_ITS ---
Progress Note: A&P Assessment and Plan (1) Acute and chronic respiratory failure: Code(s): J96.20 - Acute and chronic respiratory failure, unspecified whether with hypoxia or hypercapnia Status: Acute Assessment and Plan: Chronic respiratory failure likely secondary to COPD on 4 L supplemental O2 at baseline. Acutely worsened, currently requiring 8 L per nasal cannula with increased work of breathing. Likely multifactorial in etiology: * New onset PE. Please see below * Stage IV lung cancer * Likely pneumonia with evidence of ground-glass opacities. Continue IV ceftriaxone and azithromycin. * COVID PCR negative. Will check legionella and pneumococcal urinary antigens * Possibly related to pulmonary edema with new onset lower extremity swelling and elevated BNP. Administered 1 time dose of IV Lasix in the ED. Was started 40 mg IV Lasix BID, however potassium dropped to 2.2. Edema is improved so this was switched to 20 mg PO daily which is noted to be his home dose. Monitor intake and output. Heart healthy diet. Echo with grade 1 diastolic dysfunction. * Supportive care. Continue supplemental O2 as needed with goal saturation 90% or above * Continue albuterol and ipratropium nebs q.6 * Appreciate pulmonology consultation (2) Pulmonary embolism: Qualifiers: Acute cor pulmonale presence: unspecified Chronicity: acute Pulmonary embolism type: unspecified Qualified Code(s): I26.99 - Other pulmonary embolism without acute cor pulmonale Code(s): I26.99 - Other pulmonary embolism without acute cor pulmonale Status: Acute Assessment and Plan: Evident on CTA with at least moderate clot burden * Left lung interlobar pulmonary embolism extending into several segmental bronchi * Echocardiogram shows grade 1 diastolic dysfunction. * Troponins mildly elevated. BNP is elevated * IVC filter placed by Dr. Leyva * Continue heparin, will need to be bridged with warfarin or one of the direct oral anticoagulants * Hoped to transition to xaralto today, however he is on tegretol which has a strong interaction with both xaralto and eliquis. Pt is a poor historian and states he does not know why he takes it. He denies a hx of seizures. * Spoke w/ his oncologist Dr. King who states he is on it for severe neuropathic pain. Considering current circumstances he states it is reas onable to try stopping tegretol in favor of starting xaralto. I have stopped the tegretol and will plan to transition from heparin to warfarin after about 48 hours based on the half life excretion of tegretol. (3) Lung cancer: Qualifiers: Laterality: unspecified laterality Lung location: unspecified part of lung Qualified Code(s): C34.90 - Malignant neoplasm of unspecified part of unspecified bronchus or lung Code(s): C34.90 - Malignant neoplasm of unspecified part of unspecified bronchus or lung Status: Acute Assessment and Plan: Stage IV lung cancer managed by oncologist Dr. King * Completed radiation 6 months ago * I spoke with RN at Dr. King is office to obtain further information * Had been managed on oral chemotherapy Lumakras which was discontinued 1 week ago after recent PET scan showed progression * fourchette sewer reports at this time there are no additional options for treatment. 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 They will continue to follow-up monthly for further monitoring and pain management * Reports patient is established with palliative care (4) Pleural effusion: Code(s): J90 - Pleural eff
[2021-05-05] MEDS: POTASSIUM CHLORIDE 20 MEQ TABLET.ER PO (17:44)
[2021-05-05] MEDS: HYDROmorphone HCL (*CRX) 2 MG TABLET PO (17:45)
[2021-05-05] MEDS: ALPRAZolam (*CRX) 0.25 MG TABLET PO (17:45)
[2021-05-05] MEDS: AMITRIPTYLINE HCL 25 MG TABLET 150 MG PO (20:35)
[2021-05-05] MEDS: oxyCODONE HCL (*CRX) 20 MG TAB SR 12HR 60 MG PO (20:35)
[2021-05-05] MEDS: PANTOPRAZOLE 40 MG TABLET PO (21:47)
[2021-05-06] VITALS (21 sets, daily range): BP systolic 101–117; BP diastolic 52–86; PULSE 84–104; RESP 14–20; TEMP 36.6–37.1; O2SAT 93–98
[2021-05-06] MEDS: IPRATROPIUM BR 0.02% INH SOLN 0.5 MG/2.5 ML VIAL INHALATION ×4 (02:49→19:36)
[2021-05-06] MEDS: ALBUTEROL SULFATE NEB 2.5 MG/0.5 ML INH 5 MG INHALATION ×4 (02:49→19:36)
[2021-05-06 05:28] LABS: Basophils Absolute Auto 0.1 K/mm3 (0.0-0.1); Basophils Percent Auto 0.9 % (0.2-1.2); Eosinophils Absolute Auto 0.1 K/mm3 (0-0.3); Eosinophils Percent Auto 2.6 % (0-4.4); Hemoglobin 10.8 g/dL (14.0-18.0); Immature Granulocyte Percent A 1.9 % (0-0.5); Lymphocytes Absolute Auto 0.85 K/mm3 (0.9-3.2); Lymphocytes Percent Auto 15.8 % (18.3-44.2); Mean Corpuscular HGB Conc 31.8 g/dl (32-36); Mean Corpuscular Hemoglobin 28.7 pg (26-34); Mean Corpuscular Volume 90.4 fl (80-100); Mean Platelet Volume 10.8 fl (7.4-10.4); Monocytes Absolute Auto 0.4 K/mm3 (0.1-0.6); Monocytes Percent Auto 7.6 % (2.6-8.5); Neutrophils Absolute Auto 3.8 K/mm3 (1.3-6.7); Neutrophils Percent Auto 71.2 % (45.5-73.1); Platelet Count Result 173 k/mm3 (150-375); Red Blood Count 3.76 M/mm3 (4.6-6.20); Red Cell Distribution Width 14.8 % (11.5-14.5); White Blood Count 5.4 K/mm3 (4.5-10.0)
[2021-05-06 05:47] LABS: Anion Gap 3 mmol/L (8-16); Blood Urea Nitrogen 11 mg/dL (9-20); Calcium 8.6 mg/dL (8.4-10.2); Carbon Dioxide 36 mmol/L (22-30); Chloride 93 mmol/L (98-107); Estimated CRCL calculation 79 ml/min; Estimated Glomerular Filt Rate > 60; Glucose 104 mg/dL (65-110); Potassium 3.4 mmol/L (3.4-5.0); Sodium 132 mmol/L (137-145)
[2021-05-06] MEDS: FUROSEMIDE 20 MG TABLET PO (08:40)
[2021-05-06] MEDS: GABAPENTIN 400 MG CAPSULE 800 MG PO ×3 (08:40→16:51)
[2021-05-06] MEDS: DOCUSATE SODIUM 100 MG CAPSULE PO ×2 (08:40→20:27)
[2021-05-06] MEDS: oxyCODONE HCL (*CRX) 20 MG TAB SR 12HR 60 MG PO ×2 (08:40→20:27)
[2021-05-06] MEDS: POTASSIUM CHLORIDE 20 MEQ TABLET.ER PO ×2 (08:40→16:51)
[2021-05-06] MEDS: FLUTICASONE/SALMETEROL 115-21 MCG INHALER 1 PUFF 2 PUFF INHALATION ×2 (09:14→21:30)
--- NOTE | 2021-05-06 09:56 | PM.IMPN ---
Progress Note: A&P Assessment and Plan (1) Acute and chronic respiratory failure: Code(s): J96.20 - Acute and chronic respiratory failure, unspecified whether with hypoxia or hypercapnia Status: Acute Assessment and Plan: Chronic respiratory failure likely secondary to COPD on 4 L supplemental O2 at baseline. Acutely worsened, currently requiring 8 L per nasal cannula with increased work of breathing. Likely multifactorial in etiology: New onset PE. Please see below Stage IV lung cancer Likely pneumonia with evidence of ground-glass opacities. Continue IV ceftriaxone and azithromycin. COVID PCR negative. Will check legionella and pneumococcal urinary antigens Possibly related to pulmonary edema with new onset lower extremity swelling and elevated BNP. Administered 1 time dose of IV Lasix in the ED. Was started 40 mg IV Lasix BID, however potassium dropped to 2.2. Edema is improved so this was switched to 20 mg PO daily which is noted to be his home dose. Monitor intake and output. Heart healthy diet. Echo with grade 1 diastolic dysfunction. Supportive care. Continue supplemental O2 as needed with goal saturation 90% or above Continue albuterol and ipratropium nebs q.6 Appreciate pulmonology consultation (2) Pulmonary embolism: Qualifiers: Acute cor pulmonale presence: unspecified Chronicity: acute Pulmonary embolism type: unspecified Qualified Code(s): I26.99 - Other pulmonary embolism without acute cor pulmonale Code(s): I26.99 - Other pulmonary embolism without acute cor pulmonale Status: Acute Assessment and Plan: Evident on CTA with at least moderate clot burden Left lung interlobar pulmonary embolism extending into several segmental bronchi Echocardiogram shows grade 1 diastolic dysfunction. Troponins mildly elevated. BNP is elevated IVC filter placed by Dr. Leyva Continue heparin, will need to be bridged with warfarin or one of the direct oral anticoagulants Hoped to transition to xaralto today, however he is on tegretol which has a strong interaction with both xaralto and eliquis. Pt is a poor historian and states he does not know why he takes it. He denies a hx of seizures. Spoke w/ his oncologist Dr. King who states he is on it for severe neuropathic pain. Considering current circumstances he states it is reasonable to try stopping tegretol in favor of starting xaralto. I have stopped the tegretol and will plan to transition from heparin to warfarin after about 48 hours based on the half life excretion of tegretol. (3) Lung cancer: Qualifiers: Laterality: unspecified laterality Lung location: unspecified part of lung Qualified Code(s): C34.90 - Malignant neoplasm of unspecified part of unspecified bronchus or lung Code(s): C34.90 - Malignant neoplasm of unspecified part of unspecified bronchus or lung Status: Acute Assessment and Plan: Stage IV lung cancer managed by oncologist Dr. King Completed radiation 6 months ago I spoke with RN at Dr. 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 They will continue to follow-up monthly for further monitoring and pain management Reports patient is established with palliative care (4) Pleural effusion: Code(s): J90 - Pleural effusion, not elsewhere classified Status: Acute Assessment and Plan: Patient had PleurX catheter placed a [facility] He reports he is no longer draining his catheter CTA showed loculated bilateral pleural effusions Appreciate pulmonology consultation (5) COPD (chronic obstructive pulmonary disease): Code(s): J44.9 - Chronic obstructive pulmona
[2021-05-06] MEDS: HEPARIN SOD/D5W 100 UNITS/ML 25,000 UNITS/250 ML BAG 17 UNITS IV CONT ×2 (14:58)
[2021-05-06 20:27] LABS: Legionella pneumophila Ag Ur Not Detected (Not Detected)
[2021-05-06] MEDS: AMITRIPTYLINE HCL 25 MG TABLET 150 MG PO (20:27)
[2021-05-06] MEDS: PANTOPRAZOLE 40 MG TABLET PO (20:27)
--- NOTE | 2021-05-06 22:41 | PC.NURSE ---
This patient, El Pino, was transferred to [Critical access hospital ] on 05/06/21 at 2217. Personal belongings sent with patient. Report given to [ Melly]. Appropriate documentation sent with patient.
[2021-05-07] VITALS (10 sets, daily range): BP systolic 93–95; BP diastolic 55–63; PULSE 89–103; RESP 18–20; TEMP 36–36.1; O2SAT 86–94
[2021-05-07] MEDS: ALBUTEROL SULFATE NEB 2.5 MG/0.5 ML INH 5 MG INHALATION ×2 (03:51→09:32)
[2021-05-07] MEDS: IPRATROPIUM BR 0.02% INH SOLN 0.5 MG/2.5 ML VIAL INHALATION ×2 (03:52→09:32)
[2021-05-07] MEDS: HEPARIN SOD/D5W 100 UNITS/ML 25,000 UNITS/250 ML BAG 17 UNITS IV CONT (05:09)
[2021-05-07] MEDS: HYDROcodone/acetaminophen (*CRX) 5-325 MG TABLET 1 TAB PO (05:15)
[2021-05-07 05:46] LABS: Basophils Absolute Auto 0.1 K/mm3 (0.0-0.1); Basophils Percent Auto 1.2 % (0.2-1.2); Eosinophils Absolute Auto 0.2 K/mm3 (0-0.3); Hematocrit 34.3 % (42.0-52.0); Hemoglobin 10.9 g/dL (14.0-18.0); Immature Granulocyte Absolute 0.15 K/mm3 (0.00-0.031); Immature Granulocyte Percent A 2.9 % (0-0.5); Lymphocytes Percent Auto 15.4 % (18.3-44.2); Mean Corpuscular HGB Conc 31.8 g/dl (32-36); Mean Corpuscular Hemoglobin 28.6 pg (26-34); Mean Platelet Volume 10.5 fl (7.4-10.4); Monocytes Absolute Auto 0.3 K/mm3 (0.1-0.6); Neutrophils Absolute Auto 3.7 K/mm3 (1.3-6.7); Neutrophils Percent Auto 70.5 % (45.5-73.1); Platelet Count Result 174 k/mm3 (150-375); Red Blood Count 3.81 M/mm3 (4.6-6.20); Red Cell Distribution Width 15.1 % (11.5-14.5); White Blood Count 5.2 K/mm3 (4.5-10.0)
[2021-05-07 05:56] LABS: Anion Gap 0 mmol/L (8-16); Blood Urea Nitrogen 11 mg/dL (9-20); Calcium 8.9 mg/dL (8.4-10.2); Carbon Dioxide 36 mmol/L (22-30); Chloride 94 mmol/L (98-107); Estimated CRCL calculation 64 ml/min; Estimated Glomerular Filt Rate > 60; Glucose 125 mg/dL (65-110); Potassium 3.8 mmol/L (3.4-5.0); Sodium 130 mmol/L (137-145)
[2021-05-07] MEDS: FLUTICASONE/SALMETEROL 115-21 MCG INHALER 1 PUFF 2 PUFF INHALATION (09:32)
[2021-05-07] MEDS: ALPRAZolam (*CRX) 0.25 MG TABLET PO (09:54)
[2021-05-07] MEDS: POTASSIUM CHLORIDE 20 MEQ TABLET.ER PO (09:54)
[2021-05-07] MEDS: FUROSEMIDE 20 MG TABLET PO (09:54)
[2021-05-07] MEDS: DOCUSATE SODIUM 100 MG CAPSULE PO (09:54)
[2021-05-07] MEDS: RIVAROXABAN 15 MG TABLET PO (09:55)
[2021-05-07] MEDS: GABAPENTIN 400 MG CAPSULE 800 MG PO (09:55)
[2021-05-07] MEDS: oxyCODONE HCL (*CRX) 20 MG TAB SR 12HR 60 MG PO (09:58)
--- NOTE | 2021-05-07 10:32 | PC.NURSE ---
pt informed me that he wants to see the hospitalist MARIA LUISA and be discharged today or he is going to go AMA. I explained to him for the second time that I do not control the hospitalists' schedule and they will come see him today but I have no idea or control over when that would be. I also reiterated that I will call the hospital (who is [facility] today) and let her know he wants to see her and be discharged. He began ranting about that he doesn't believe we are doing anything for him, he is better than when he first came in but nothing else has been done, his family needs him, and he IS going home today. I contacted Mariela Muhammad and told her what patient stated to which she replied, I will get to him when I get to him but he has a big freaking blood clot and needs to stay at least another 24 hours. I explained that I understand her concern and was merely passing along the information from the patient. I have prepared the AMA document as a precautionary measure and will continue to monitor.
--- NOTE | 2021-05-07 11:34 | PM.DS ---
DS: Admitting Diagnosis Discharge Date 05/07/21 Admitting Diagnosis pulmonary embolism DS: Discharge Diagnosis Discharge Diagnosis (1) Acute and chronic respiratory failure: Code(s): J96.20 - Acute and chronic respiratory failure, unspecified whether with hypoxia or hypercapnia Status: Acute Assessment and Plan: Chronic respiratory failure likely secondary to COPD on 4 L supplemental O2 at baseline. Acutely worsened on admission, requiring 8 L per high flow nasal cannula with increased work of breathing. Likely multifactorial in etiology: New onset PE. Please see below Stage IV lung cancer Pulm consulted Likely pneumonia with evidence of ground-glass opacities. Completed 5 days of azithromycin and 6 days of rocephin. COVID PCR negative. legionella and pneumococcal urinary antigens negative. Possibly related to pulmonary edema with new onset lower extremity swelling and elevated BNP. Administered 1 time dose of IV Lasix in the ED. Was started 40 mg IV Lasix BID, however potassium dropped to 2.2. Edema is improved so this was switched to 20 mg PO daily which is noted to be his home dose. Monitor intake and output. Heart healthy diet. Echo with grade 1 diastolic dysfunction. Will go home on 20 PO daily. albuterol and ipratropium nebs q.6 Continued supplemental O2 as needed with goal saturation 90% or above, was weaned down to 4L NC which is his baseline. (2) Pulmonary embolism: Qualifiers: Acute cor pulmonale presence: unspecified Chronicity: acute Pulmonary embolism type: unspecified Qualified Code(s): I26.99 - Other pulmonary embolism without acute cor pulmonale Code(s): I26.99 - Other pulmonary embolism without acute cor pulmonale Status: Acute Assessment and Plan: Evident on CTA with at least moderate clot burden Left lung interlobar pulmonary embolism extending into several segmental bronchi Echocardiogram shows grade 1 diastolic dysfunction. Troponins mildly elevated. BNP is elevated IVC filter placed by Dr. Leyva Continued heparin drip Hoped to transition to xaralto, however he is on tegretol which has a strong interaction with both xaralto and eliquis. Pt is a poor historian and states he does not know why he takes it. He denies a hx of seizures. Spoke w/ his oncologist Dr. King who states he is on it for severe neuropathic pain. Considering current circumstances he states it is reasonable to try stopping tegretol in favor of starting xaralto. I stopped the tegretol 2 days ago and transitioned him to xaralto today. He will go home on xaralto starter pack. (3) Lung cancer: Qualifiers: Laterality: unspecified laterality Lung location: unspecified part of lung Qualified Code(s): C34.90 - Malignant neoplasm of unspecified part of unspecified bronchus or lung Code(s): C34.90 - Malignant neoplasm of unspecified part of unspecified bronchus or lung Status: Acute Assessment and Plan: Stage IV lung cancer managed by oncologist Dr. King Completed radiation 6 months ago spoke with RN at Dr. King is office to obtain further information Had been managed on oral chemotherapy Lumakras which was discontinued 1 week ago after recent PET scan showed progression fitness and wellness coordinator reports at this time there are no additional options for treatment. 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 They will continue to follow-up monthly for further monitoring and pain management Reports patient is established with palliative care (4) Pleural effusion: Code(s): J90 - Pleural effusion, not elsewhere classified Status: Acute Assessment and Plan: Patient had PleurX catheter placed a [facility] He reports he is no longer draining his catheter CTA showed loculated bilateral pleural effusions (5) COPD (chronic obstructive pulmonary disease): Code(s): J44.9 - Chronic obstr
== END 2021-05-07 12:20 | disposition home or self-care (01) | DRG 175 ==
LOC: ANHED 05-02 03:20 → ANHIMU 05-02 03:32 → ANH2MED 05-07 11:47 → ANHIMU 05-09 11:12
PROVIDERS: Internal Medicine; Internal Medicine Cardiovascular Disease; Physician Assistant; Admitting Provider Internal Medicine; Emergency Provider Emergency Medicine; PCP Family Medicine; Visit Provider Hospitalist
PROC: 06H03DZ Insertion of Intraluminal Device into Inferior Vena Cava, Percutaneous Approach (ICD-10-PCS; principal; 2021-05-03 10:00)
DX: I26.99 Other pulmonary embolism without acute cor pulmonale (principal); J18.9 Pneumonia, unspecified organism; J96.20 Acute and chronic respiratory failure, unspecified whether with hypoxia or hypercapnia; C34.90 Malignant neoplasm of unspecified part of unspecified bronchus or lung; I82.491 Acute embolism and thrombosis of other specified deep vein of right lower extremity; E87.1 Hypo-osmolality and hyponatremia; I82.411 Acute embolism and thrombosis of right femoral vein; J91.0 Malignant pleural effusion; M84.58XA Pathological fracture in neoplastic disease, other specified site, initial encounter for fracture; C79.51 Secondary malignant neoplasm of bone; M54.9 Dorsalgia, unspecified; G62.89 Other specified polyneuropathies; G89.29 Other chronic pain; I25.2 Old myocardial infarction; J43.9 Emphysema, unspecified; R60.9 Edema, unspecified; R77.8 Other specified abnormalities of plasma proteins; Z20.822 Contact with and (suspected) exposure to COVID-19; Z51.5 Encounter for palliative care; Z87.891 Personal history of nicotine dependence; Z99.81 Dependence on supplemental oxygen; Z92.3 Personal history of irradiation; Z92.21 Personal history of antineoplastic chemotherapy; Z79.01 Long term (current) use of anticoagulants
CPT/HCPCS: 36415; 36600; 37191; 71045; 71275; 74177; 80048; 80053; 81001; 82805; 83605; 83690; 83735; 83880; 84132; 84484; 85025; 85055; 85610; 85730; 87040; 87449; 87804; 87899; 93005; 93970; 94002; 94640; 96365; 96366; 96367; 96375; 96376; 97110; 97116; 97161; 97166; 97535; 99291; A9270; C1880; C1894; C8929; C9803; G0378; J0456; J0696; J1644; J1940; J2270; J3480; J7030; J7040; Q9967; U0003; U0005

== ENCOUNTER 2021-06-13 01:32 | Inpatient (IN) | payer OTHER, MEDICARE, SELFPAY ==
[2021-06-13] VITALS (38 sets, daily range): BP systolic 101–151; BP diastolic 70–98; PULSE 90–112; RESP 14–26; TEMP 35.6–36.7; O2SAT 92–100; BMI 25.0
--- NOTE | ~2021-06-13 | XR_ITS ---
EXAMINATION: XR chest 1V portable DATE: 06/13/2021 02:25 INDICATION: Shortness of breath. TECHNIQUE: A single frontal view of the chest was obtained. COMPARISON: Chest single view 05/02/2021, chest CT 05/02/2021 FINDINGS: There is volume loss of right hemithorax. There are airspace opacities in all right lung zo cassie. There are airspace opacities in left mid and lower lung zones with a peripheral predominance. Th ere is a small right pleural effusion. A right-sided chest tube is noted. The heart size is normal. T here is a right internal jugular port with tip in right atrium. There is expansion and sclerosis of l eft seventh rib. IMPRESSION: 1. Airspace opacities in right lung and left mid and lower lung zones with volume loss on the right, worsened on the right and improvement on the left from 05/02/2021, likely a combination of pneumonia, right lung cancer, and treatment changes. 2. Small right pleural effusion with chest tube in expected position. 3. Expansion and sclerosis of left seventh rib, consistent with metastatic disease. Reviewed, dictated and finalized at location [facility] CARE NURSE IMPRESSION: 1. Airspace opacities in right lung and left mid and lower lung zones with volu me loss on the right, worsened on the right and improvement on the left from , likely a combination of pneumonia, right lung cancer, and treatment ch anges. 2. Small right pleural effusion with chest tube in expected position. 3. Expansion and sclerosis of left seventh rib, consistent with metastatic dise ase.
--- NOTE | 2021-06-13 01:40 | ECG_ITS ---
Measurements Intervals [place] Rate: 110 P: 52 MD: 155 QRS: 70 QRSD: 90 T: 39 QT: 333 QTc: 452 Interpretive Statements SINUS TACHYCARDIA WANDERING BASELINE ARTIFACT NONSPECIFIC ST ABNORMALITY BORDERLINE ECG COMPARED TO ECG 05/02/2021 00:13:55 HEART RATE HAS SLIGHTLY DECREASED AND SUPRAVENTRICULAR BIGEMINY NO LONGER APPRECIATED Electronically Signed On 06-13-2021 14:04:11 LADDERMAN by Alex Campos M.D.
--- NOTE | 2021-06-13 01:44 | ED.SOB ---
HPI - SOB/Dyspnea General Chief Complaint: Shortness of Breath/Dyspnea Stated Complaint: SOB, wheezing, on cpap Time Seen by Provider: 06/13/21 01:40 Source: patient and EMS Mode of arrival: EMS Limitations: clinical condition History of Present Illness HPI Narrative: Patient is a 61-year-old male complaining of shortness of breath that started tonight. Per EMS patient's oxygen saturation was in the low 70s on 2 L, in respiratory distress when they arrived, patient was placed on CPAP. Patient currently uses oxygen at home continuously at 2 L. Patient has a history of COPD and lung CA. Patient denies any chest pain, develop. Coag nausea, vomiting, diaphoresis, fever or chills. Patient is a poor historian. MD elicited complaint: shortness of breath and cough Related Data Home Medications Medication Instructions Recorded Confirmed alprazolam 0.25 mg PO TID PRN 05/02/21 05/02/21 amitriptyline 150 mg PO DAILY 05/02/21 05/02/21 furosemide 20 mg PO BID 05/02/21 05/02/21 gabapentin 800 mg PO TID 05/02/21 05/02/21 hydromorphone 2 mg PO Q4H PRN 05/02/21 05/02/21 oxycodone [OxyContin] 60 mg PO BID 05/02/21 05/02/21 Allergies Allergy/AdvReac Type Severity Reaction Status Date / Time No Known Allergies Allergy Verified 05/01/21 23:50 Review of Systems Review of Systems: All systems reviewed & are unremarkable except as noted in HPI and below Constitutional: Constitutional: Denies body ache(s), Denies chills, Denies excessive sweating, Denies fatigue, Denies fever(s), Denies headache(s), Denies lethargy, Denies malaise, Denies weakness and Denies weight loss Eyes: Eyes: Denies blurry vision, Denies change in vision and Denies loss of vision ENT: Denies dizziness, Denies ear discharge, Denies headache(s), Denies lip swelling, Denies epistaxis, Denies nasal congestion, Denies neck pain, Denies throat swelling and Denies tongue swelling Cardiovascular: Cardiovascular: Denies chest pain, Denies chest pain at rest, Denies chest pain with activity, Denies diaphoresis, Denies rapid heart rate, Denies edema, Denies irregular heart rhythm, Denies lightheadedness and Denies palpitations Respiratory: Respiratory: Denies chest congestion and Denies hemoptysis Gastrointestinal: Gastrointestinal: Denies abdominal pain, Denies melena, Denies hematochezia, Denies diarrhea, Denies nausea, Denies vomiting and Denies hematemesis Musculoskeletal: Musculoskeletal: Denies abnormal gait, Denies deformity, Denies joint swelling, Denies limited range of motion, Denies neck pain and Denies numbness Neurologic: Denies Abnormal speech present, Denies abnormal gait, Denies confusion, Denies dizziness, Denies headache(s), Denies focal weakness, Denies loss of vision, Denies numbness, Denies Other visual disturbances, Denies Sensory deficit (Neuro) and Denies weakness Psychiatric: Psychiatric: Denies confusion, Denies depression, Denies auditory hallucinations, Denies homicidal ideation and Denies suicidal ideation Endocrine: Endocrine: Denies cold intolerance, Denies excessive sweating, Denies fatigue, Denies heat intolerance and Denies palpitations Hematologic/Lymphatic: Hematologic/Lymphatic: Denies easy bleeding and Denies easy bruising Allergic/Immunologic: Allergic/Immunologic: Denies lip swelling, Denies throat swelling and Denies tongue swelling PMFSH Past Medical History Medical History Chronic inflammatory demyelinating neuropathy Chronic respiratory failure COPD (chronic obstructive pulmonary disease) Lung cancer Pleural effusion Port-A-Cath in place Surgical History Surgical History History of chest tube placement PleurX catheter Family History Family History Mother No problems noted. Father Lung cancer Social History Social History (Reviewed 06/13/21 @ 01:45 by Tod
[2021-06-13] MEDS: methylPREDNISolone SOD SUCC 125 MG VIAL IV PUSH (01:50)
[2021-06-13 01:51] LABS: Basophils Absolute Auto 0.1 K/mm3 (0.0-0.1); Basophils Percent Auto 0.7 % (0.2-1.2); Eosinophils Absolute Auto 0.1 K/mm3 (0-0.3); Eosinophils Percent Auto 1.7 % (0-4.4); Hematocrit 39.1 % (42.0-52.0); Hemoglobin 12.1 g/dL (14.0-18.0); Immature Granulocyte Absolute 0.04 K/mm3 (0.00-0.031); Immature Granulocyte Percent A 0.6 % (0-0.5); Lymphocytes Absolute Auto 0.73 K/mm3 (0.9-3.2); Lymphocytes Percent Auto 10.3 % (18.3-44.2); Mean Corpuscular HGB Conc 30.9 g/dl (32-36); Mean Corpuscular Hemoglobin 27.8 pg (26-34); Mean Corpuscular Volume 89.9 fl (80-100); Mean Platelet Volume 10.3 fl (7.4-10.4); Monocytes Absolute Auto 0.5 K/mm3 (0.1-0.6); Monocytes Percent Auto 6.9 % (2.6-8.5); Neutrophils Absolute Auto 5.7 K/mm3 (1.3-6.7); Neutrophils Percent Auto 79.8 % (45.5-73.1); Platelet Count Result 203 k/mm3 (150-375); Red Blood Count 4.35 M/mm3 (4.6-6.20); White Blood Count 7.1 K/mm3 (4.5-10.0)
[2021-06-13 02:03] LABS: INR 1.1; Prothrombin Time 14.1 Seconds (11.1-14.7)
[2021-06-13 02:04] LABS: Partial Thromboplastin Time 30.2 SECONDS (22.3-36.8)
[2021-06-13 02:07] LABS: Alanine Aminotransferase 23 U/L (4-50); Albumin Level 3.6 g/dL (3.5-5.1); Anion Gap 4 mmol/L (8-16); Aspartate Amino Transferase 30 U/L (17-59); Bilirubin,Total 0.2 mg/dL (0.2-1.3); Blood Urea Nitrogen 16 mg/dL (9-20); Calcium 8.4 mg/dL (8.4-10.2); Carbon Dioxide 36 mmol/L (22-30); Chloride 93 mmol/L (98-107); Estimated Glomerular Filt Rate > 60; Glucose 125 mg/dL (65-110); Lactic Acid Reflex 0.9 mmol/L (0.7-2.1); Potassium 3.8 mmol/L (3.4-5.0); Sodium 133 mmol/L (137-145)
[2021-06-13 02:09] LABS: Alveolar/Arterial O2 Gradient 400.4 mmHg; Base Excess ABG 1.5 mEq/l (+/-2.0); Carboxyhemoglobin 3.6 % THb (0-2.0); Fractional Inspired Oxygen 100 %; HCO3 ABG 27.8 mEq/l (22.0-26.0); Methemoglobin ABG 0.3 %THb (0-1.5); Modified Allen's Test Pass; Oxygen Content ABG 17.7 %vol (16.0-22.0); Oxygen Saturation ABG 99.6 % (95.0-100.0); Oxyhemoglobin 94.8 % THb (90.0-100.0); PCO2 ABG 50.5 mmHg (35.0-45.0); PO2 ABG 262.1 mmHg (80.0-100.0); PO2 FiO2 Ratio Arterial Blood 2.62 %; Reduced Hemoglobin 1.3 %THb (0-5.0); Site Drawn RIGHT RADIAL; Total Hemoglobin 12.8 g/dL (12.0-18.0); pH ABG 7.358 (7.350-7.450)
[2021-06-13 02:10] LABS: Device NON-INVASIVE VENT
[2021-06-13 02:11] LABS: Non-Invasive Expiratory Pressure 7 CMH2O; Non-Invasive Inspiratory Pressure 14 CMH2O; Non-Invasive Vent Rate 20 /MIN
[2021-06-13 02:15] LABS: NT Pro B Type Natriuretic Pept 235 pg/mL (5-100)
[2021-06-13 02:17] LABS: Alkaline Phosphatase 172 U/L (38-126)
[2021-06-13] MEDS: IPRATROPIUM BR 0.02% INH SOLN 0.5 MG/2.5 ML VIAL INHALATION ×4 (02:19→22:15)
[2021-06-13] MEDS: ALBUTEROL SULFATE NEB 2.5 MG/0.5 ML INH 5 MG INHALATION ×5 (02:19→22:15)
[2021-06-13 02:23] LABS: Troponin I < 0.012 ng/mL (0.000-0.034)
[2021-06-13 03:12] LABS: Ammonia < 9 umol/L (9-30)
--- NOTE | 2021-06-13 04:11 | PC.NURSE ---
pt and family would like to use [facility]. contact is Мария DUQUE @ [phone]
--- NOTE | 2021-06-13 04:55 | ADMGEN ---
This patient, El Pino, was admitted to IMU Room 232-01. Patient/family oriented to hospital policies and general routines including ID bracelet, bed and alarms, visiting hours, pain management, procedures, bathroom and other care routines, personal items, smoking policy, room service/diet, and visiting hours. Information on how to activate the Rapid Response Team has been discussed. Patient/Family are encouraged to report perceived risks to care and to ask questions if they do not understand what they are told or what they should do.
--- NOTE | 2021-06-13 06:41 | PC.NURSE ---
Patient's , Saray Pino, called to clarify that the patient is a DNR with paperwork at home, and the family would like hospice consult. He is already an existing patient with [facility].
--- NOTE | 2021-06-13 09:54 | PM.IMHP ---
H&P: HPI History of Present Illness Date/Time: 06/13/21 09:54 Chief Complaint: Short of breath Narrative: 60yo male with history of CIDP, chronic respiratory failure on 4 L, COPD, lung cancer and recently diagnosed with PE who was brought in by EMS for respiratory failure. Patient was hospitalized in April of this year found to have left lung PE. He was discharged on Xarelto. Patient has been compliant with this. Patient was able to be weaned down to his baseline 4 L O2 nasal cannula at time of discharge. Patient has not been hospitalized elsewhere since discharge. He is not on treatment for his lung cancer. He has not seen his oncologist for 4 months because there was ?nothing else they can do?. Patient was his normal state health until about 4 days prior to admission when he developed increasing shortness of breath. He denies any odynophagia or dysphagia. No cough. No chest pain, pleuritic chest pain or palpitations. He has nausea but no vomiting. He is eating reasonably well. He is not sure if he has weight loss. He has been compliant with his supplemental oxygen. He walks with a walker short distances. He checks his pulse ox at home and runs in the 90s. He checks this about once a day. He does not have BiPAP at home. No anosmia or dysgeusia. He is up-to-date on his COVID vaccines. He has a PleurX catheter in place in the right lung but the been no output from the drain for about 4-5 months. He is on chronic narcotics. Has constipation due to this. The narcotics are for his lung cancer and back pain. He does have a bony mets to his back and rib. He had is not sure if he took too much of the narcotics that resulted in his symptoms. He denies any suicidal or homicidal ideation. He has been in contact with hospice but is unable to sign up for hospice because if he does so, then he will lose his health insurance. In the scenario writer hours of admission, patient was found by family who had difficulty arousing him. EMS was called. Patient aroused with sternal rub. He was 74% on 4 L. He was wheezing. Blood pressure was normal. His placed on CPAP and brought to the emergency room for evaluation. In the Emergency room he was tachycardic at 111 and tachypneic rate 24. Is 96% on the CPAP. ABG 7.36/50/262 on BiPAP. BNP was 235. Troponin was negative. Chest x-ray shows airspace opacities in right lung and left mid lower lung zones with volume loss in the right worsened on the right improvement on the left from April likely a combination pneumonia, right lung cancer and treatment changes. There is a small right pleural effusion with chest tube in expected position. He also has evidence of left 7th rib sclerosis consistent with metastatic disease. Patient was given a dose of Solu-Medrol, nebulizer treatments and antibiotics. He is admitted for further care. Patient is awake alert. He feels much better. He is requesting the BiPAP be removed. Respiratory therapy has been contacted. Review of Systems Review of Systems: All systems reviewed & are unremarkable except as noted in HPI and below PMFSH Past Medical History Medical History Chronic inflammatory demyelinating neuropathy Chronic respiratory failure COPD (chronic obstructive pulmonary disease) Lung cancer Pleural effusion Port-A-Cath in place Surgical History Surgical History History of chest tube placement PleurX catheter Family History Family History Mother No problems noted. Father Lung cancer Social History Social History (Updated 06/13/21 @ 10:07 by Colt Palomo MD) Social History: Mr. Pino lives at home with his and his daughter. He is independent with his daily activities. His PCP is Dr. Donell Chacon. He designates his , Celena, as his surrogate decision maker. H
[2021-06-13] MEDS: ONDANSETRON HCL ODT 4 MG TABLET PO (12:38)
[2021-06-13] MEDS: HYDROcodone/acetaminophen (*CRX) 10-325 MG TABLET 1 TAB PO (12:38)
[2021-06-13] MEDS: ALPRAZolam (*CRX) 0.25 MG TABLET PO ×2 (12:41→18:05)
[2021-06-13] MEDS: GABAPENTIN 400 MG CAPSULE 800 MG PO ×2 (12:41→18:08)
[2021-06-13] MEDS: methylPREDNISolone SOD SUCC 40 MG VIAL IV PUSH ×2 (12:42→22:16)
[2021-06-13] MEDS: oxyCODONE HCL (*CRX) 20 MG TAB SR 12HR 60 MG PO (18:04)
[2021-06-13] MEDS: HYDROmorphone HCL (*CRX) 2 MG TABLET 4 MG PO (18:05)
[2021-06-13] MEDS: TRIAMTERENE 37.5 MG/HCTZ 25 MG (MAXZIDE) TABLET 1 TAB PO (18:07)
[2021-06-13] MEDS: RIVAROXABAN 20 MG TABLET PO (18:07)
[2021-06-13] MEDS: LACTULOSE 20 GM/30 ML UDC PO (18:08)
[2021-06-13] MEDS: PANTOPRAZOLE 40 MG TABLET PO (18:08)
[2021-06-13] MEDS: CARBAMAZEPINE XR 100 MG TAB.SR.12H PO (18:09)
[2021-06-14] VITALS (14 sets, daily range): BP systolic 105–150; BP diastolic 77–98; PULSE 92–115; RESP 17–24; TEMP 35.6–36.8; O2SAT 94–100
[2021-06-14] MEDS: IPRATROPIUM BR 0.02% INH SOLN 0.5 MG/2.5 ML VIAL INHALATION ×2 (02:46→08:44)
[2021-06-14] MEDS: ALBUTEROL SULFATE NEB 2.5 MG/0.5 ML INH 5 MG INHALATION (02:46)
[2021-06-14] MEDS: methylPREDNISolone SOD SUCC 40 MG VIAL IV PUSH (06:12)
[2021-06-14] MEDS: FLUTICASONE/UMECLIDIN/VILANTER 100-62.5-25 MCG ELLIPTA 1 PUFF INHALATION (08:51)
[2021-06-14] MEDS: oxyCODONE HCL (*CRX) 20 MG TAB SR 12HR 60 MG PO (09:04)
[2021-06-14] MEDS: HYDROcodone/acetaminophen (*CRX) 10-325 MG TABLET 1 TAB PO (09:04)
[2021-06-14] MEDS: ALPRAZolam (*CRX) 0.25 MG TABLET PO (09:05)
[2021-06-14] MEDS: GABAPENTIN 400 MG CAPSULE 800 MG PO (09:05)
[2021-06-14] MEDS: FUROSEMIDE 40 MG TABLET PO (09:05)
[2021-06-14] MEDS: CARBAMAZEPINE XR 100 MG TAB.SR.12H PO (09:06)
[2021-06-14] MEDS: LACTULOSE 20 GM/30 ML UDC PO (09:06)
[2021-06-14] MEDS: AMITRIPTYLINE HCL 25 MG TABLET 150 MG PO (09:06)
[2021-06-14] MEDS: ROSUVASTATIN 10 MG TABLET PO (09:06)
[2021-06-14] MEDS: AZITHROMYCIN 250 MG TABLET PO (09:07)
[2021-06-14] MEDS: TRIAMTERENE 37.5 MG/HCTZ 25 MG (MAXZIDE) TABLET 1 TAB PO (09:07)
[2021-06-14] MEDS: BISACODYL 5 MG TABLET EC PO (09:14)
--- NOTE | 2021-06-14 09:30 | PM.DS ---
DS: Admitting Diagnosis Discharge Date 06/14/21 Admitting Diagnosis Respiratory failure DS: Discharge Diagnosis Discharge Diagnosis (1) Acute and chronic respiratory failure: Code(s): J96.20 - Acute and chronic respiratory failure, unspecified whether with hypoxia or hypercapnia Status: Acute Assessment and Plan: Patient brought in to the ED with acute hypoxic respiratory failure. Patient was found by EMS to be severely hypoxic. Etiology felt related to PNA and/or COPD exacerbation. Consider also excessive narcotic use or untreated sleep apnea with a mildly elevated CO2 although the pH is normal. He was started on BiPAP and admitted to IMU. Treated with nebulizer treatments, steroids and antibiotics. He clinically improved and able to wean off the BiPAP. He is now stable on 4L which he takes chronically. (2) Acute exacerbation of chronic obstructive pulmonary disease (COPD): Code(s): J44.1 - Chronic obstructive pulmonary disease with (acute) exacerbation Status: Acute Assessment and Plan: Patient was wheezing by EMS. This improved with above treatment. (3) Pneumonia: Code(s): J18.9 - Pneumonia, unspecified organism Status: Acute Assessment and Plan: Chest x-ray reviewed and showing airspace opacities in right lung with volume loss and left mid and lower lung zones likely a combination of pneumonia, right lung cancer, and treatment changes. Patient denies cough. White count was normal. Cannot exclude pneumonia. He does have PleurX catheter in place but not functioning anymore. Doubt he has empyema as the etiology of his respiratory failure. He was treated with IV antibiotics. (4) Lung cancer: Qualifiers: Laterality: unspecified laterality Lung location: unspecified part of lung Qualified Code(s): C34.90 - Malignant neoplasm of unspecified part of unspecified bronchus or lung Code(s): C34.90 - Malignant neoplasm of unspecified part of unspecified bronchus or lung Status: Acute Assessment and Plan: Patient states that he is no longer a candidate for treatment for his lung cancer. He states that he is unable to sign up for hospice because of insurance issues and currently on Palliative Care. Spoke with Care coordination who contacted the palliative care agency. Patient and family have decided to proceed with hospice care. Plan to discharge home on hospice care. (5) Pathologic fracture: Code(s): M84.40XA - Pathological fracture, unspecified site, initial encounter for fracture Status: Acute Assessment and Plan: Patient with pathologic fractures and bony Mets. We continued narcotics. (6) Pulmonary embolism: Qualifiers: Acute cor pulmonale presence: unspecified Chronicity: acute Pulmonary embolism type: unspecified Qualified Code(s): I26.99 - Other pulmonary embolism without acute cor pulmonale Code(s): I26.99 - Other pulmonary embolism without acute cor pulmonale Status: Acute Assessment and Plan: Patient has a history of PE and DVT. We continued Xarelto. DS: Summary Hospital Course Reason for hospitalization: 60yo male with Stage IV metastatic lung cancer here for respiratory failure. Please see H&P for details. Hospital Course: Please see above for details of hospital course. Status at Discharge Cognitive/behavioral status at discharge: Stable Time Spent with Patient Time attestation: Total time spent providing and/or coordinating discharge services: 38 minutes Time spent: Greater than 30 minutes Exam Narrative: AF 98.3 110/93 114 24 94% 4L Gen - NARD sitting up in bed talking to someone on the phone. Chest - coarse BS left lung with decreased BS right lung CV - RRR S1/S2 Abd - Soft, NT/ND, Positive BS Ext - No pedal edema Psych - Nml mood and affect Skin - Warm and dry Discharge Plan Discharge Attending physician on discharge: Far
== END 2021-06-14 11:53 | disposition hospice, home (50) | DRG 189 ==
LOC: ANHED 02:28 → ANHIMU 07:09
PROVIDERS: Admitting Provider Internal Medicine; Emergency Provider Emergency Medicine; PCP Family Medicine; Visit Provider Internal Medicine
DX: J96.21 Acute and chronic respiratory failure with hypoxia (principal); J18.9 Pneumonia, unspecified organism; J44.1 Chronic obstructive pulmonary disease with (acute) exacerbation; C34.90 Malignant neoplasm of unspecified part of unspecified bronchus or lung; J44.0 Chronic obstructive pulmonary disease with (acute) lower respiratory infection; J90 Pleural effusion, not elsewhere classified; M84.40XA Pathological fracture, unspecified site, initial encounter for fracture; Z79.891 Long term (current) use of opiate analgesic; Z99.81 Dependence on supplemental oxygen; Z80.1 Family history of malignant neoplasm of trachea, bronchus and lung; Z86.718 Personal history of other venous thrombosis and embolism; Z86.711 Personal history of pulmonary embolism; Z51.5 Encounter for palliative care; Z66 Do not resuscitate; Z79.899 Other long term (current) drug therapy
CPT/HCPCS: 36415; 36600; 71045; 80053; 82140; 82375; 82805; 83050; 83605; 83880; 84484; 85025; 85610; 85730; 93005; 94002; 94003; 94640; 96365; 96367; 96375; 99291; A9270; J0456; J0696; J2920; J2930